=== PATIENT | female | born 2000 | race Caucasian/White ===

== ENCOUNTER 2020-09-15 11:09 | Outpatient (CLI) | payer OTHER, SELFPAY ==
[2020-09-15 12:54] LABS: HIV 1/2 Ab P24 Ag Result Negative (Negative)
[2020-09-15 13:43] LABS: Hepatitis C Virus Antibody Negative (Negative)
== END 2020-09-15 11:10 | disposition home or self-care (01) ==
DX: Z91.89 Other specified personal risk factors, not elsewhere classified (principal)
CPT/HCPCS: 36415; 86703; 86803; G0432

== ENCOUNTER 2021-06-16 12:18 | Emergency (ER) | payer OTHER, SELFPAY ==
[2021-06-16 12:21] VITALS: BP 113/72; PULSE 98; RESP 14; TEMP 36.3; O2SAT 100
[2021-06-16 12:29] VITALS: BP 119/80; PULSE 81; RESP 18; O2SAT 98
--- NOTE | 2021-06-16 12:32 | ED.NAVMDI ---
HPI - Nausea/Vomiting/Diarrhea General Chief complaint: Nausea/Vomiting/Diarrhea Stated complaint: vomiting, diarrhea Time Seen by Provider: 06/16/21 12:24 Source: patient History of Present Illness HPI Narrative: Patient is with nausea vomiting diarrhea and chills. Patient reports she has had symptoms for approximately 2 to 3 days and feel like it is getting worse. Also reports diffuse abdominal cramping that is constant with no radiation and no clear aggravating or alleviating factors. She denies any blood bile or melena. She has a sick contact denies any recent antibiotics or travel outside the area. Related Data Home Medications Medication Instructions Recorded Confirmed bupropion HCl [Wellbutrin] 75 mg PO TID 06/16/21 06/16/21 Allergies Allergy/AdvReac Type Severity Reaction Status Date / Time No Known Allergies Allergy Verified 06/16/21 12:29 Review of Systems Review of Systems: CONSTITUTIONAL: Patient reports chills EYES: Denies visual changes, redness, or discharge. ENT: Denies rhinorrhea, congestion, sore throat, or otalgia. CARDIOVASCULAR: Denies chest pain, palpitations, or edema. RESPIRATORY: Denies cough or dyspnea. GASTROINTESTINAL: Abdominal pain nausea vomiting and diarrhea GENITOURINARY: Denies dysuria or hematuria. SKIN: Denies rash or itching. MUSCULOSKELETAL: Denies back pain, joint pain, or myalgia. NEUROLOGIC: Denies headache, numbness, dizziness, or weakness. PSYCHIATRIC: Denies anxiety or depression. All systems reviewed & are unremarkable except as noted in HPI and below PMFSH Past Medical History Medical History (Updated 06/16/21 @ 14:30 by Freddy Mcguire MD) Depression Social History Social History (Updated 06/16/21 @ 12:35 by Freddy Mcguire MD) Smoking status: Current every day smoker Alcohol intake: current Substance use: current Substance use type: marijuana Exam Narrative: GENERAL: Well-appearing, well-nourished, and in no acute distress. HEAD: Normocephalic, atraumatic. EYES: PERRLA and EOMI. ENT: Nares clear, no rhinorrhea or epistaxis. Mucous membranes moist. NECK: Supple. No masses. No JVD CHEST: Clear to auscultation. No respiratory distress. No wheezes rales or rhonchi HEART: Regular rate and rhythm. No murmur heard. Normal peripheral pulses. ABDOMEN: Mild diffuse abdominal pain no rebound or guarding soft,nondistended, normal active bowel sounds. : c t tech present and toxics program officer throughout the entire exam. There are no external lesions ulcerations or pustules no focal tenderness or lymphadenopathy. Speculum exam with mild amount of dark blood in the vaginal vault with scant amount of bloody drainage from the cervix no white discharge. No purulent discharge EXTREMITIES: Normal range of motion. No edema. SKIN: Warm, dry, no rash. NEURO: No focal deficits. Alert and oriented x3. PSYCH: Normal mood and affect. Course Reevaluation(s) Reevaluation #1: Patient requested STD testing supports multiple random sexual partners of unprotected sex denies any vaginal irritation does report some mild vaginal bleeding is not sure where she is on her menses. Pelvic exam performed swab sent at patient's request Reevaluation #2: Patient is resting comfortably reports feeling improved results and plan with patient. Patient is comfortable outpatient plan. Date: 06/16/21 Time: 14:28 Vital Signs Vital signs: Vital Signs Temperature 36.3 C L 06/16/21 12:21 Pulse Rate 98 06/16/21 12:21 Respiratory Rate 14 06/16/21 12:21 Blood Pressure 113/72 06/16/21 12:21 Pulse Oximetry 100 06/16/21 12:21 Temperature 36.3 C L 06/16/21 12:21 Pulse Rate 78 06/16/21 14:37 Respiratory Rate 18 06/16/21 14:37 Blood Pressure 102/78 06/16/21 14:37 Pulse Oximetry 98 06/16/21 14:37 MDM - Nausea/Vomiting/Diarrhea MDM Narrative Medical decision making narrative: H&P as above, vss, pt looks clinically well, exam with nonacute abdomen, labs clinically
[2021-06-16 12:42] LABS: Basophils Percent Auto 0.2 % (0.2-1.2); Eosinophils Percent Auto 0.4 % (0-4.4); Hematocrit 39.9 % (37.0-47.0); Immature Granulocyte Absolute 0.02 K/mm3 (0.00-0.031); Immature Granulocyte Percent A 0.4 % (0-0.5); Lymphocytes Absolute Auto 0.95 K/mm3 (0.9-3.2); Lymphocytes Percent Auto 18.2 % (18.3-44.2); Mean Corpuscular HGB Conc 35.1 g/dl (32-36); Mean Corpuscular Hemoglobin 30.4 pg (26-34); Mean Corpuscular Volume 86.6 fl (80-100); Mean Platelet Volume 11.6 fl (7.4-10.4); Monocytes Absolute Auto 0.4 K/mm3 (0.1-0.6); Monocytes Percent Auto 8.1 % (2.6-8.5); Neutrophils Absolute Auto 3.8 K/mm3 (1.3-6.7); Neutrophils Percent Auto 72.7 % (45.5-73.1); Platelet Count Result 162 k/mm3 (150-375); Red Blood Count 4.61 M/mm3 (4.2-5.4); Red Cell Distribution Width 11.9 % (11.5-14.5); White Blood Count 5.2 K/mm3 (4.5-10.0)
[2021-06-16 12:44] LABS: Appearance Urine Clear (Clear); Bilirubin Urine 1+ (Negative); Blood Urine 2+ (Negative); Color Urine Yellow (Yellow); Glucose Urine UA Negative (Negative); Ketones Urine 4+ mg/dL (Negative); Leukocyte Esterase Ur Negative LEU/UL (Negative); Nitrate Urine Negative (Negative); Protein Urine Negative (Negative); Specific Grav Ur 1.025 (1.001-1.035); Urobilinogen Urine 0.2 mg/dL (<2.0)
[2021-06-16 12:53] LABS: Mucus Urine Few /lpf; Squamous Epithelial Cell Urine Few /hpf (Few); WBC Urine 0-3 /hpf
[2021-06-16 12:57] LABS: Alanine Aminotransferase 57 U/L (4-35); Albumin Level 4.9 g/dL (3.5-5.1); Alkaline Phosphatase 95 U/L (38-126); Anion Gap 10 mmol/L (8-16); Aspartate Amino Transferase 38 U/L (14-36); Bilirubin,Total 2.2 mg/dL (0.2-1.3); Blood Urea Nitrogen 12 mg/dL (7-17); Calcium 8.9 mg/dL (8.4-10.2); Carbon Dioxide 20 mmol/L (22-30); Chloride 104 mmol/L (98-107); Estimated CRCL calculation 137 ml/min; Estimated Glomerular Filt Rate > 60; Glucose 80 mg/dL (65-110); Lipase 26 U/L (23-300); Potassium 3.9 mmol/L (3.4-5.0); Sodium 134 mmol/L (137-145)
[2021-06-16] MEDS: SODIUM CHLORIDE 0.9% IV 1,000 ML 999 ML IV CONT (12:59)
[2021-06-16] MEDS: ONDANSETRON INJ 4 MG/2 ML VIAL IV PUSH (12:59)
[2021-06-16 13:01] LABS: Add Urine Microscopic? YES
[2021-06-16 14:37] VITALS: BP 102/78; PULSE 78; RESP 18; O2SAT 98
== END 2021-06-16 14:37 | disposition home or self-care (01) ==
PROVIDERS: Emergency Provider Emergency Medicine
DX: R11.2 Nausea with vomiting, unspecified (principal); R10.84 Generalized abdominal pain; R19.7 Diarrhea, unspecified; F32.A Depression, unspecified; Z72.51 High risk heterosexual behavior
CPT/HCPCS: 36415; 80053; 81001; 81025; 83690; 85025; 87070; 87077; 87491; 87591; 87808; 96361; 96374; 99284; J2405; J7030

== ENCOUNTER 2021-07-25 19:18 | Emergency (ER) | payer OTHER, SELFPAY ==
[2021-07-25 19:26] VITALS: BP 113/77; PULSE 88; RESP 16; TEMP 35.7; O2SAT 100
--- NOTE | 2021-07-25 19:35 | ED.NAVMDI ---
HPI - Nausea/Vomiting/Diarrhea General Chief complaint: Nausea/Vomiting/Diarrhea Stated complaint: vomiting/diarrhea Time Seen by Provider: 07/25/21 19:35 Source: patient Mode of arrival: ambulatory Limitations: no limitations History of Present Illness HPI Narrative: 21-year-old female presents with complaint of nausea vomiting diarrhea last night. Had to call into work this morning. Needs work note to return. Reports symptoms have resolved. All systems reviewed and negative except as noted above. Related Data Home Medications Medication Instructions Recorded Confirmed No Home Medications 07/25/21 07/25/21 Allergies Allergy/AdvReac Type Severity Reaction Status Date / Time No Known Allergies Allergy Verified 06/16/21 12:29 Review of Systems Review of Systems: CONSTITUTIONAL: Denies fever, chills, or sweats. EYES: Denies visual changes, redness, or discharge. ENT: Denies rhinorrhea, congestion, sore throat, or otalgia. CARDIOVASCULAR: Denies chest pain, palpitations, or edema. RESPIRATORY: Denies cough or dyspnea. GASTROINTESTINAL: Denies abdominal pain. Reports nausea, vomiting and diarrhea. GENITOURINARY: Denies dysuria or hematuria. SKIN: Denies rash or itching. MUSCULOSKELETAL: Denies back pain, joint pain, or myalgia. NEUROLOGIC: Denies headache, numbness, or weakness. PSYCHIATRIC: Denies anxiety or depression. All other systems reviewed are negative, except as documented in HPI. PMFSH Past Medical History Medical History (Updated 07/25/21 @ 19:40 by Fifi Strong NP) Depression Social History Social History (Updated 06/16/21 @ 12:35 by Freddy Mcguire MD) Smoking status: Current every day smoker Alcohol intake: current Substance use: current Substance use type: marijuana Comments At time of signature, agree with nursing past medical, surgical, social and family history. There is no relevant family history pertinent to the presenting complaint. Exam Narrative: GENERAL: This is a well-nourished, well-developed patient, in no apparent distress. HEAD: normocephalic, atraumatic. EYES: PERRL. Sclera clear/white. Vision is grossly intact. EARS: External ears normal NOSE: External nose normal NECK: Neck supple, non-tender without lymphadenopathy, masses or thyromegaly. CARDIOVASCULAR: Regular rate and rhythm without murmurs, gallops, or rubs. RESPIRATORY: Clear to auscultation. Breath sounds equal bilaterally. No wheezes, rales, or rhonchi. GASTROINTESTINAL: Abdomen soft, non-tender, nondistended. Bowel sounds are active. No hepato-splenomegaly, or palpable masses. No guarding. SKIN: warm, Dry, intact with no suspicious lesions or rash, good texture and turgor. NEURO: awake, alert, and oriented to person, place and time. There were no obvious focal neurologic abnormalities. EXTREMITIES: Normal range of motion to all extremities. Course Course Level of Care: Express Care Visit Vital Signs Vital signs: Vital Signs Temperature 35.7 C L 07/25/21 19: Pulse Rate 88 07/25/21 19:26 Respiratory Rate 16 07/25/21 19:26 Blood Pressure 113/77 07/25/21 19:26 Pulse Oximetry 100 07/25/21 19:26 Oxygen Delivery Room Air 07/25/21 19:26 Temperature 35.7 C L 07/25/21 19:26 Pulse Rate 88 07/25/21 19:26 Respiratory Rate 16 07/25/21 19:26 Blood Pressure 113/77 07/25/21 19:26 Pulse Oximetry 100 07/25/21 19:26 Oxygen Delivery Room Air 07/25/21 19:26 Reviewed MDM - Nausea/Vomiting/Diarrhea MDM Narrative Medical decision making narrative: Patient is aware of diagnosis, understands and agrees to treatment plan. Anticipatory guidance given. Patient agrees to follow-up as directed and is aware of reasons to seek care at the emergency department. Portions of this record may have been created with voice recognition software Discharge Plan Discharge Clinical Impression: Nausea vomiting and diarrhea, Well adult health check Patient Disposi
== END 2021-07-25 19:47 | disposition home or self-care (01) ==
PROVIDERS: Emergency Provider Nurse Practitioner Family
DX: R11.2 Nausea with vomiting, unspecified (principal); R19.7 Diarrhea, unspecified; F17.210 Nicotine dependence, cigarettes, uncomplicated; F12.90 Cannabis use, unspecified, uncomplicated
CPT/HCPCS: 99211; G0463

== ENCOUNTER 2021-09-21 09:53 | Emergency (ER) | payer MEDICAID, SELFPAY ==
--- NOTE | ~2021-09-21 | US_ITS ---
US OB <=14 wk fetus w TV DATE: 09/21/2021 10:59 INDICATION: Pelvic cramping, gravid patient TECHNIQUE: Real-time imaging via transabdominal and transvaginal approaches COMPARISON: None FINDINGS: The uterus measures 7.6 cm height, 4 cm AP dimension, up to 4.8 cm transverse dimension. The central endometrial echo complex measures approximately 11.5 mm AP dimension. An intrauterine ges tational sac is identified. Yolk sac is detected. No pole is identified. Sac size is consistent with 5 weeks 5 days estimated gestational age. 2.2 cm right corpus luteum cyst. The ovaries are otherwise unremarkable. No pelvic free fluid collect ion. IMPRESSION: Intrauterine gestational sac; yolk sac but not pole is detected. Sac size would be consistent with 5 weeks 5 days estimated gestational age. Short-term follow-up ultrasound imaging is recommended. Reviewed, dictated and finalized at [facility]. Reviewed, dictated and finalized at [facility]. IMPRESSION: Intrauterine gestational sac; yolk sac but not pole is detect ed. Sac size would be consistent with 5 weeks 5 days estimated gestational age. Short-term follow-up ultrasound imaging is recommended.
[2021-09-21 09:57] VITALS: BP 110/65; PULSE 117; RESP 18; TEMP 36.4; O2SAT 99
[2021-09-21] MEDS: SODIUM CHLORIDE 0.9% IV 1,000 ML 999 ML IV CONT (10:13)
--- NOTE | 2021-09-21 10:17 | ED.GENADULT ---
HPI - General Adult General Chief complaint: Unspecified Stated complaint: I think I am severly dehyrdtated Time Seen by Provider: 09/21/21 10:00 Source: patient Mode of arrival: ambulatory Limitations: no limitations History of Present Illness HPI narrative: This is a 21 year old , about 6 weeks by LMP, that presents to the ER for nausea and vomiting. Reports she was at [employer] outside all day yesterday. She does not think that she kept up with hydration. She is feeling weak. Also having some abdominal cramping. Her OB is Dr. Ruiz. She has had an US, but it was too early to identify . Denies fever. Related Data Home Medications Medication Instructions Recorded Confirmed acetaminophen 500 mg tablet mg 09/21/21 09/21/21 dicloxacillin 500 mg capsule mg 09/21/21 Allergies Allergy/AdvReac Type Severity Reaction Status Date / Time No Known Allergies Allergy Verified 09/21/21 10:04 Review of Systems Review of Systems: CONSTITUTIONAL: Denies fever GASTROINTESTINAL: Reports abdominal pain, nausea, vomiting GENITOURINARY: Denies dysuria All systems reviewed & are unremarkable except as noted in HPI and below PMFSH Past Medical History Medical History (Updated 09/21/21 @ 13:03 by Dorothy Borja PA-C) Depression Encounter for Nexplanon removal 10/21/2020 Social History Social History (Updated 09/13/21 @ 13:32 by Nga Garcia MA) Smoking status: Former smoker Alcohol intake: never Substance use: former Substance use type: marijuana Gender identity (if verbalized by the patient): Female Sexual Orientation (if Verbalized by the Patient): Straight or Heterosexual Exam Narrative: GENERAL: Well-appearing, well-nourished, and in no acute distress. HEAD: Normocephalic, atraumatic. EYES: EOMI. CHEST: Clear to auscultation. No respiratory distress. No wheezes rales or rhonchi HEART: Regular rate and rhythm. No murmur heard. Normal peripheral pulses. ABDOMEN: Soft, nontender, nondistended, normal active bowel sounds. EXTREMITIES: Normal range of motion. No edema. SKIN: Warm, dry, no rash. NEURO: No focal deficits. Alert and oriented x3. PSYCH: Normal mood and affect Course Vital Signs Vital signs: Vital Signs Temperature 97.6 F 09/21/21 09:57 Pulse Rate 117 H 09/21/21 09:57 Respiratory Rate 18 09/21/21 09:57 Blood Pressure 110/65 09/21/21 09:57 Pulse Oximetry 99 09/21/21 09:57 Temperature 97.6 F 09/21/21 12:51 Pulse Rate 108 H 09/21/21 12:51 Respiratory Rate 14 09/21/21 12:51 Blood Pressure 96/59 L 09/21/21 12:51 Pulse Oximetry 99 09/21/21 12:51 Medical Decision Making MDM Narrative Medical decision making narrative: Patient presents to the emergency department for pelvic cramping, nausea and vomiting. She is afebrile and nontoxic-appearing. Her vitals are stable. CBC and metabolic panel without concerning findings. UA without evidence of infection. Quantitative beta-hCG 9593. Patient denies any vaginal bleeding. Obstetrics ultrasound shows intrauterine gestational sac, but no pole identified. Gestational sac correlates with 5 weeks and 5 days estimated gestational age. Short-term follow-up ultrasound recommended. Patient was updated on case findings. She was hydrated with IV fluids and given antiemetic with relief. Able to tolerate p.o. challenge. Reports feeling better. She is stable and felt appropriate for further outpatient evaluation. She was given warnings to return to the ER Attempted to reach patient's OB without success. Instructed to have close follow-up with her doctor Vital Signs Vital Signs: Vital Signs Temperature 97.6 F 09/21/21 09:57 Pulse Rate 117 H 09/21/21 09:57 Respiratory Rate 18 09/21/21 09:57 Blood Pressure 110/65 09/21/21 09:57 Pulse Oximetry 99 09/21/21 09:57 Temperature 97.6 F 09/21/21 12:51 Pulse Rate 108 H 09/21/21 12:51 Respiratory Rate 14 09/21/21
[2021-09-21] MEDS: diphenhydrAMINE HCl INJ 50 MG/ML VIAL 25 MG IV PUSH (10:21)
[2021-09-21] MEDS: METOCLOPRAMIDE HCL INJ 10 MG/2 ML VIAL IV PUSH (10:23)
[2021-09-21 10:28] LABS: Basophils Percent Auto 0.2 % (0.2-1.2); Hematocrit 36.8 % (37.0-47.0); Immature Granulocyte Absolute 0.02 K/mm3 (0.00-0.031); Immature Granulocyte Percent A 0.3 % (0-0.5); Immature Platelet Fraction Pct 7.8 % (0.9-11.2); Lymphocytes Absolute Auto 0.21 K/mm3 (0.9-3.2); Lymphocytes Percent Auto 3.5 % (18.3-44.2); Mean Corpuscular HGB Conc 35.3 g/dl (32-36); Mean Corpuscular Hemoglobin 30.5 pg (26-34); Mean Corpuscular Volume 86.4 fl (80-100); Mean Platelet Volume 12.2 fl (7.4-10.4); Monocytes Absolute Auto 0.3 K/mm3 (0.1-0.6); Monocytes Percent Auto 4.9 % (2.6-8.5); Neutrophils Absolute Auto 5.4 K/mm3 (1.3-6.7); Neutrophils Percent Auto 91.1 % (45.5-73.1); Platelet Count Result 154 k/mm3 (150-375); Red Blood Count 4.26 M/mm3 (4.2-5.4); Red Cell Distribution Width 12.4 % (11.5-14.5)
[2021-09-21 10:36] LABS: Appearance Urine Clear (Clear); Bilirubin Urine Negative (Negative); Blood Urine Negative (Negative); Color Urine Yellow (Yellow); Glucose Urine UA Negative (Negative); Ketones Urine Negative (Negative); Leukocyte Esterase Ur Negative LEU/UL (Negative); Nitrate Urine Negative (Negative); Protein Urine Negative (Negative); Urobilinogen Urine 0.2 mg/dL (<2.0)
[2021-09-21 10:48] LABS: Bacteria Urine Trace /hpf; Mucus Urine Rare /lpf; RBC Urine 0-2 /hpf (0-2); Squamous Epithelial Cell Urine Occasional /hpf (Few)
[2021-09-21 10:52] LABS: Add Urine Microscopic? NO
[2021-09-21 11:14] VITALS: BP 109/69; PULSE 99; RESP 16; O2SAT 97
[2021-09-21 11:25] LABS: Alanine Aminotransferase 71 U/L (6-35); Albumin Level 4.3 g/dL (3.5-5.1); Alkaline Phosphatase 77 U/L (38-126); Anion Gap 5 mmol/L (8-16); Aspartate Amino Transferase 39 U/L (14-36); Bilirubin,Total 0.6 mg/dL (0.2-1.3); Blood Urea Nitrogen 6 mg/dL (7-17); Carbon Dioxide 24 mmol/L (22-30); Chloride 107 mmol/L (98-107); Creatine Kinase 37 U/L (30-135); Estimated CRCL calculation 137 ml/min; Estimated Glomerular Filt Rate > 60; Glucose 96 mg/dL (65-110); Potassium 3.5 mmol/L (3.4-5.0); Sodium 136 mmol/L (137-145)
[2021-09-21 12:51] VITALS: BP 96/59; PULSE 108; RESP 14; TEMP 36.4; O2SAT 99
== END 2021-09-21 13:26 | disposition home or self-care (01) ==
PROVIDERS: Physician Assistant; Emergency Provider General Practice
DX: O21.9 Vomiting of pregnancy, unspecified (principal); Z87.891 Personal history of nicotine dependence; Z3A.01 Less than 8 weeks gestation of pregnancy
CPT/HCPCS: 36415; 76801; 76817; 80053; 81003; 82550; 84702; 85025; 85055; 96361; 96374; 96375; 99284; J1200; J2765; J7030

== ENCOUNTER 2021-09-28 08:44 | Emergency (ER) | payer MEDICAID, SELFPAY ==
--- NOTE | ~2021-09-28 | US_ITS ---
US OB <= 14 weeks fetus DATE: 09/28/2021 11:45 INDICATION: Lower abdominal pain, nausea and vomiting.] Positive. TECHNIQUE: Real-time imaging and Doppler analysis COMPARISON: 09/21/2021 obstetrical ultrasound FINDINGS: The uterus measures approximately 9 cm height, 3.7 cm anteroposterior dimension. Intrauterine gestational sac is identified with normal surrounding hyperechogenicity consistent with normal decidual reaction. Yolk sac and pole are detected. heart rate of 104 bpm. [place]-rump length measures 0.38 cm average, consistent with 6 weeks +/- 4 days estimated gestational age and INO of 05/24 Slight subchorionic hematoma is suggested /2022. Subchorionic small hematoma is suggested. 1.4 x 1.7 cm left ovarian cyst. IMPRESSION: Estimated gestational age of 6 weeks +/- 4 days with INO of 05/24/2022 Small subchorionic hematoma is suggested Left ovarian cyst is diminished 2.2 to 1.7 cm maximal dimension since 09/21/2021 Reviewed, dictated and finalized at [facility]. Reviewed, dictated and finalized at [facility]. IMPRESSION: Estimated gestational age of 6 weeks +/- 4 days with INO of 05/25/19 23 Small subchorionic hematoma is suggested Left ovarian cyst is diminished 2.2 to 1.7 cm maximal dimension since 09/21/2021
--- NOTE | ~2021-09-28 | US_ITS ---
EXAMINATION: US abdomen limited DATE: 09/28/2021 11:44 INDICATION: Transaminitis, nausea and vomiting TECHNIQUE: Multiple grayscale and Doppler ultrasound images of the abdomen were obtained. COMPARISON: None available FINDINGS: Bowel gas obscures visualization of the pancreas The liver is normal with normal echogenici ty and echotexture. No surface nodularity. Normal hepatopetal flow in the main portal vein. There is a small amount of sludge in the gallbladder. There is no gallbladder wall thickening or pericholecyst ic fluid. The normal common bile duct measures 3 mm. There was no sonographic [place] sign. IMPRESSION: 1. Gallbladder sludge without additional findings of cholecystitis. Reviewed, dictated and finalized at [facility].
[2021-09-28 08:46] VITALS: BP 110/73; PULSE 92; RESP 18; TEMP 36.2; O2SAT 99
[2021-09-28 09:16] LABS: Basophils Percent Auto 0.2 % (0.2-1.2); Hematocrit 40.8 % (37.0-47.0); Hemoglobin 14.3 g/dL (12.0-15.0); Immature Platelet Fraction Pct 9.3 % (0.9-11.2); Lymphocytes Absolute Auto 1.11 K/mm3 (0.9-3.2); Lymphocytes Percent Auto 26.5 % (18.3-44.2); Mean Corpuscular Volume 85.5 fl (80-100); Mean Platelet Volume 11.4 fl (7.4-10.4); Monocytes Absolute Auto 0.4 K/mm3 (0.1-0.6); Monocytes Percent Auto 8.6 % (2.6-8.5); Neutrophils Absolute Auto 2.7 K/mm3 (1.3-6.7); Neutrophils Percent Auto 64.7 % (45.5-73.1); Platelet Count Result 141 k/mm3 (150-375); Red Blood Count 4.77 M/mm3 (4.2-5.4); Red Cell Distribution Width 12.2 % (11.5-14.5); White Blood Count 4.2 K/mm3 (4.5-10.0)
--- NOTE | 2021-09-28 09:18 | ED.GENADULT ---
HPI - General Adult General Chief complaint: Nausea/Vomiting/Diarrhea Stated complaint: nausea and vomiting - Covid positive on 09/24 Time Seen by Provider: 09/28/21 08:49 Source: patient Mode of arrival: ambulatory Limitations: no limitations History of Present Illness HPI narrative: Patient is a 21-year-old female who presents the ED with report of nausea and vomiting. Patient was diagnosed with COVID-19 via home test on 09/24 after she was exposed to someone who also tested positive. She is currently approximately 7 weeks . She was seen in the ED on 09/21 and had an US performed which showed an intrauterine sac with yolk sac, but no pole yet. , ASSISTANT PROFESSOR OF ENGLISH is Dr. Ruiz. She is scheduled to have another ultrasound on Friday. Patient reports having persistent nausea and vomiting for the last 2 days, unable to keep any fluids down. She was prescribed Reglan on 09/21 when she was seen in the ED, but was unaware of this. She has not tried this for nausea. She was prescribed Zofran by her OB yesterday and tried this today without relief. Patient also reports having a cough, subjective fever, myalgias, diffuse ABD pain, but denies vaginal bleeding, hematemesis, diarrhea, constipation, rectal bleeding, urinary symptoms. Related Data Home Medications Medication Instructions Recorded Confirmed acetaminophen 500 mg tablet mg 09/21/21 09/21/21 dicloxacillin 500 mg capsule mg 09/21/21 Allergies Allergy/AdvReac Type Severity Reaction Status Date / Time No Known Allergies Allergy Verified 09/28/21 08:45 Review of Systems Review of Systems: CONSTITUTIONAL: Reports subjective fever. CARDIOVASCULAR: Denies chest pain. RESPIRATORY: Reports cough. Denies dyspnea. GASTROINTESTINAL: Reports N/V, diffuse ABD pain. Denies hematemesis, rectal bleeding, constipation or diarrhea. GENITOURINARY: Denies vaginal bleeding, dysuria or hematuria. MUSCULOSKELETAL: Reports myalgias. All systems reviewed & are unremarkable except as noted in HPI and below PMFSH Past Medical History Medical History (Updated 09/28/21 @ 12:25 by Carol Rios PA-C) Depression Encounter for Nexplanon removal 10/21/2020 Surgical History Surgical History (Updated 09/28/21 @ 09:19 by Carol Rios PA-C) No pertinent past surgical history Social History Social History Smoking status: Former smoker Alcohol intake: never Substance use: former Substance use type: marijuana Gender identity (if verbalized by the patient): Female Sexual Orientation (if Verbalized by the Patient): Straight or Heterosexual Exam Narrative: GENERAL: Mildly ill appearing, well-nourished, non-toxic, in no acute distress. HEAD: Normocephalic, atraumatic. NECK: Supple. No adenopathy, no masses. RESPIRATORY: Airway patent, respirations nonlabored. Clear to auscultation bilaterally, no rales, rhonchi, wheezing. No respiratory distress. No coughing on evaluation. CARDIOVASCULAR: Regular rate and rhythm without murmurs, rubs, or gallops. Peripheral pulses 2+ and equal bilaterally. ABDOMINAL: Soft, diffuse nonspecific tenderness to palpation in upper and lower abdomen - no localized tenderness, nondistended, no hepatosplenomegaly. Normoactive BS. MUSCULOSKELETAL: Moves all extremities. Strength/ROM intact without gross deformities. SKIN: Warm, dry, normal color. No rashes. No diaphoresis. NEURO: A&O X3. Speech clear. Cranial nerves II-XII grossly intact. Steady gait. No ataxic movements. PSYCHIATRIC: Appropriate mood and affect. Normal interaction. Course Consultations Consultation #1: Discussed case with Dr. Ruiz, patient's ASSISTANT PROFESSOR OF ENGLISH, recommended [facility] [employer] for cough at home. Will follow as outpatient. Date: 09/28/21 Vital Signs Vital signs: Vital Signs Temperature 97.1 F L 09/28/21 08:46 Pulse Rate 92 09/28/21 08:46 Respiratory Rate 18 09/28/21 08:46 Blood Pressure 110/73 09/28/21 08:46
[2021-09-28 09:26] LABS: Alanine Aminotransferase 309 U/L (6-35); Albumin Level 4.9 g/dL (3.5-5.1); Alkaline Phosphatase 109 U/L (38-126); Anion Gap 10 mmol/L (8-16); Aspartate Amino Transferase 217 U/L (14-36); Bilirubin,Total 1.2 mg/dL (0.2-1.3); Blood Urea Nitrogen 10 mg/dL (7-17); Calcium 9.1 mg/dL (8.4-10.2); Carbon Dioxide 26 mmol/L (22-30); Chloride 101 mmol/L (98-107); Estimated CRCL calculation 134 ml/min; Estimated Glomerular Filt Rate > 60; Glucose 108 mg/dL (65-110); Lipase 30 U/L (23-300); Potassium 3.6 mmol/L (3.4-5.0); Sodium 137 mmol/L (137-145)
[2021-09-28] MEDS: SODIUM CHLORIDE 0.9% IV 1,000 ML 999 ML IV CONT ×2 (10:05→11:38)
[2021-09-28] MEDS: ONDANSETRON INJ 4 MG/2 ML VIAL IV PUSH (10:05)
[2021-09-28 10:15] LABS: Appearance Urine Slightly Cloudy (Clear); Bilirubin Urine 2+ (Negative); Blood Urine Negative (Negative); Glucose Urine UA Negative (Negative); Ketones Urine 1+ mg/dL (Negative); Leukocyte Esterase Ur Negative LEU/UL (Negative); Nitrate Urine Negative (Negative); Protein Urine 1+ mg/dL (Negative); Specific Grav Ur 1.015 (1.001-1.035); pH Urine 8.5 (5.0-9.0)
[2021-09-28 10:25] LABS: Mucus Urine Moderate /lpf; Squamous Epithelial Cell Urine Many /hpf (Few)
[2021-09-28 10:48] LABS: Add Urine Microscopic? YES; Color Urine Dark Yellow (Yellow)
[2021-09-28] MEDS: METOCLOPRAMIDE HCL INJ 10 MG/2 ML VIAL IV PUSH (12:46)
[2021-09-28 14:21] VITALS: BP 100/79; PULSE 83; RESP 16; O2SAT 100
== END 2021-09-28 14:22 | disposition home or self-care (01) ==
PROVIDERS: Physician Assistant; Emergency Provider Emergency Medicine; PCP Obstetrics & Gynecology
DX: O98.511 Other viral diseases complicating pregnancy, first trimester (principal); U07.1 COVID-19; O21.9 Vomiting of pregnancy, unspecified; O26.891 Other specified pregnancy related conditions, first trimester; R82.71 Bacteriuria; R74.01 Elevation of levels of liver transaminase levels; R93.2 Abnormal findings on diagnostic imaging of liver and biliary tract; O34.81 Maternal care for other abnormalities of pelvic organs, first trimester; N83.202 Unspecified ovarian cyst, left side; Z3A.01 Less than 8 weeks gestation of pregnancy; Z87.891 Personal history of nicotine dependence
CPT/HCPCS: 36415; 76705; 76801; 80053; 81001; 83690; 84702; 85025; 85055; 87086; 87088; 96361; 96374; 96375; 99284; J0131; J2405; J2765; J7030

== ENCOUNTER 2021-10-17 12:16 | Outpatient (CLI) | payer OTHER, SELFPAY ==
[2021-10-17 12:49] LABS: Basophils Percent Auto 0.3 % (0.2-1.2); Eosinophils Percent Auto 0.3 % (0-4.4); Hematocrit 37.9 % (37.0-47.0); Hemoglobin 13.2 g/dL (12.0-15.0); Immature Granulocyte Absolute 0.02 K/mm3 (0.00-0.031); Immature Granulocyte Percent A 0.3 % (0-0.5); Lymphocytes Absolute Auto 1.12 K/mm3 (0.9-3.2); Lymphocytes Percent Auto 15.8 % (18.3-44.2); Mean Corpuscular HGB Conc 34.8 g/dl (32-36); Mean Platelet Volume 11.7 fl (7.4-10.4); Monocytes Absolute Auto 0.5 K/mm3 (0.1-0.6); Monocytes Percent Auto 7.2 % (2.6-8.5); Neutrophils Absolute Auto 5.4 K/mm3 (1.3-6.7); Neutrophils Percent Auto 76.1 % (45.5-73.1); Platelet Count Result 201 k/mm3 (150-375); Red Blood Count 4.26 M/mm3 (4.2-5.4); Red Cell Distribution Width 12.9 % (11.5-14.5); White Blood Count 7.1 K/mm3 (4.5-10.0)
[2021-10-17 13:36] LABS: HIV 1/2 Ab P24 Ag Result Negative (Negative)
[2021-10-17 13:48] LABS: Hepatitis B Surface Antigen Negative (Negative); Rubella IgG Antibody 8.5 IU/ML
[2021-10-18 07:37] LABS: Rapid Plasma Reagin Non-Reactive (NonReactive)
[2021-10-29 13:07] LABS: CF Result NEGATIVE (NEGATIVE); Ethnicity NG
[2021-10-31 19:46] LABS: SMA 2.0 RISK VARIANT NOT DETECTED
[2021-11-02 14:24] LABS: SMA Results Received Yes
== END 2021-10-17 12:17 | disposition home or self-care (01) ==
LOC: ANHLAB 12:19
PROVIDERS: PCP Family Medicine; Visit Provider Obstetrics & Gynecology
DX: N94.89 Other specified conditions associated with female genital organs and menstrual cycle (principal)
CPT/HCPCS: 36415; 81220; 81329; 84702; 85025; 86592; 86644; 86703; 86747; 86762; 86787; 86900; 86901; 87086; 87088; 87340; G0432

== ENCOUNTER 2021-12-21 09:13 | Emergency (ER) | payer OTHER, SELFPAY ==
[2021-12-21] VITALS (16 sets, daily range): BP systolic 105–125; BP diastolic 61–95; PULSE 81–94; RESP 12–24; TEMP 37.2; O2SAT 98–100
--- NOTE | 2021-12-21 09:34 | ED.DIZZY ---
HPI - Dizziness General Chief Complaint: Dizziness Stated Complaint: 18 weeks , dizziness, abdominal pain Time Seen by Provider: 12/21/21 09:25 History of Present Illness HPI Narrative: 21-year-old female who is 18 weeks presents to the emergency room for multiple complaints. Patient states last night she began experiencing dizziness, stating that it was worse with positional changes. Reports this morning she began developing lower abdominal pain, describing it as a cramping sensation. Patient denies any dysuria constipation or diarrhea. Patient denies fevers. Patient states that she is been unable to experience baby moving. States that this has been a common finding through her OB visits. Related Data Home Medications Medication Instructions Recorded Confirmed vitamins-iron fumarate 65 1 tablet PO DAILY 10/17/21 12/11/21 mg iron-folic acid 1 mg tablet Allergies Allergy/AdvReac Type Severity Reaction Status Date / Time No Known Allergies Allergy Verified 12/11/21 17:22 Review of Systems Review of Systems: CONSTITUTIONAL: Denies fever, chills, or sweats. EYES: Denies visual changes, redness, or discharge. ENT: Denies rhinorrhea, congestion, sore throat, or otalgia. CARDIOVASCULAR: Denies chest pain, palpitations, or edema. RESPIRATORY: Denies cough or dyspnea. GASTROINTESTINAL: Reports abdominal pain GENITOURINARY: Denies dysuria or hematuria. SKIN: Denies rash or itching. MUSCULOSKELETAL: Denies back pain, joint pain, or myalgia. NEUROLOGIC: Reports dizziness PSYCHIATRIC: Denies anxiety or depression. PMFSH Past Medical History Medical History Bipolar disorder Depression Encounter for Nexplanon removal 10/21/2020 Encounter for screening examination for sexually transmitted disease Surgical History Surgical History No pertinent past surgical history Social History Social History Smoking status: Former smoker Alcohol intake: never Substance use: former Substance use type: marijuana Gender identity (if verbalized by the patient): Female Sexual Orientation (if Verbalized by the Patient): Straight or Heterosexual Exam Narrative: GENERAL: Well-appearing, well-nourished, no physical limitations, and in no acute distress. HEAD: Normocephalic, atraumatic. EYES: Conjunctivae normal, PERRLA and EOMI. CHEST: Clear to auscultation. No respiratory distress. No wheezes rales or rhonchi. HEART: Regular rate and rhythm. No murmur heard. Normal peripheral pulses. ABDOMEN: Soft, lower abdominal tenderness, nondistended, normal active bowel sounds.m. BACK: No CVA tenderness EXTREMITIES: Normal range of motion. No edema. No clubbing or cyanosis SKIN: Warm, dry, no rash. No noted wounds NEURO: No focal deficits. Alert and oriented x3. MAEW. CN's II-XI intact bilaterally, normal gait PSYCH: Cooperative. Normal mood and affect. Course Vital Signs Vital signs: Vital Signs Pulse Rate 85 12/21/21 09:28 Respiratory Rate 16 12/21/21 09:28 Temperature 37.2 C 12/21/21 09:29 Pulse Rate 82 12/21/21 11:47 Respiratory Rate 18 12/21/21 11:47 Blood Pressure 122/61 12/21/21 11:47 Pulse Oximetry 100 12/21/21 11:47 MDM - Dizziness MDM Narrative Medical decision making narrative: 21-year-old female presented emergency room with lower abdominal pain since last night and intermittent dizziness. Labs are reassuring. No signs of infection and urinary tract infection or liver enzymes. Patient likely experiencing round ligament discomfort. Discussed case with Dr. Savage, that he is agreement. Encourages patient to remain hydrated through the weekend and will have her follow-up with him in the beginning of next week. Lab Data Result diagrams: 12/21/21 10:10 12/21/21 10:23
[2021-12-21 09:52] LABS: Add Urine Microscopic? YES; Appearance Urine Cloudy (Clear); Bilirubin Urine Negative (Negative); Blood Urine Negative (Negative); Color Urine Yellow (Yellow); Glucose Urine UA Negative (Negative); Ketones Urine Negative (Negative); Leukocyte Esterase Ur Negative LEU/UL (Negative); Mucus Urine Rare /lpf; Nitrate Urine Negative (Negative); Protein Urine Negative (Negative); RBC Urine 0-2 /hpf (0-2); Specific Grav Ur 1.014 (1.001-1.035); Squamous Epithelial Cell Urine Rare /hpf (Few); Urobilinogen Urine Negative mg/dL (<2.0); WBC Urine 0-3 /hpf
[2021-12-21] MEDS: SODIUM CHLORIDE 0.9% IV 1,000 ML 999 ML IV CONT (10:14)
[2021-12-21 10:27] LABS: Basophils Percent Auto 0.1 % (0.2-1.2); Eosinophils Percent Auto 0.4 % (0-4.4); Hematocrit 35.4 % (37.0-47.0); Hemoglobin 12.7 g/dL (12.0-15.0); Immature Granulocyte Absolute 0.02 K/mm3 (0.00-0.031); Immature Granulocyte Percent A 0.3 % (0-0.5); Lymphocytes Absolute Auto 1.18 K/mm3 (0.9-3.2); Lymphocytes Percent Auto 16.7 % (18.3-44.2); Mean Corpuscular HGB Conc 35.9 g/dl (32-36); Mean Corpuscular Hemoglobin 31.1 pg (26-34); Mean Corpuscular Volume 86.8 fl (80-100); Mean Platelet Volume 11.5 fl (7.4-10.4); Monocytes Absolute Auto 0.4 K/mm3 (0.1-0.6); Monocytes Percent Auto 6.2 % (2.6-8.5); Neutrophils Absolute Auto 5.4 K/mm3 (1.3-6.7); Neutrophils Percent Auto 76.3 % (45.5-73.1); Platelet Count Result 169 k/mm3 (150-375); Red Blood Count 4.08 M/mm3 (4.2-5.4); Red Cell Distribution Width 12.3 % (11.5-14.5); White Blood Count 7.1 K/mm3 (4.5-10.0)
[2021-12-21 10:40] LABS: Alanine Aminotransferase 28 U/L (6-35); Albumin Level 3.9 g/dL (3.5-5.1); Alkaline Phosphatase 81 U/L (38-126); Anion Gap 11 mmol/L (8-16); Aspartate Amino Transferase 26 U/L (14-36); Bilirubin,Total 0.5 mg/dL (0.2-1.3); Blood Urea Nitrogen 6 mg/dL (7-17); Calcium 8.6 mg/dL (8.4-10.2); Carbon Dioxide 22 mmol/L (22-30); Chloride 102 mmol/L (98-107); Estimated CRCL calculation 168 ml/min; Estimated Glomerular Filt Rate > 60; Glucose 84 mg/dL (65-110); Lipase 27 U/L (23-300); Potassium 3.7 mmol/L (3.4-5.0); Sodium 135 mmol/L (137-145)
[2021-12-21] MEDS: MECLIZINE HCL 25 MG TABLET PO (11:37)
== END 2021-12-21 13:11 | disposition home or self-care (01) ==
PROVIDERS: Emergency Provider Nurse Practitioner Family; PCP Family Medicine
DX: O26.892 Other specified pregnancy related conditions, second trimester (principal); R42 Dizziness and giddiness; R10.2 Pelvic and perineal pain; Z3A.18 18 weeks gestation of pregnancy
CPT/HCPCS: 36415; 80053; 81001; 83690; 85025; 96360; 96361; 99283; A9270; J7030

== ENCOUNTER 2022-02-12 10:58 | Outpatient (CLI) | payer OTHER, SELFPAY | END 2022-02-12 10:59 | disposition home or self-care (01) | LOC: ANHLAB 10:59 | PROVIDERS: PCP Family Medicine; Visit Provider Student in an Organized Health Care Education/Training Program | DX: N39.0 Urinary tract infection, site not specified (principal) | CPT/HCPCS: 87086; 87088 ==

== ENCOUNTER 2022-03-05 09:05 | Outpatient (CLI) | payer OTHER, SELFPAY ==
[2022-03-05 11:17] LABS: Hematocrit 31.4 % (37.0-47.0); Hemoglobin 10.9 g/dL (12.0-15.0); Mean Corpuscular HGB Conc 34.7 g/dl (32-36); Mean Corpuscular Volume 89.2 fl (80-100); Platelet Count Result 140 k/mm3 (150-375); Red Blood Count 3.52 M/mm3 (4.2-5.4); Red Cell Distribution Width 12.9 % (11.5-14.5)
[2022-03-05 11:31] LABS: Glucose 1 Hour PP 50gm Dose 115 mg/dL
[2022-03-05 12:09] LABS: HIV 1/2 Ab P24 Ag Result Negative (Negative)
== END 2022-03-05 09:06 | disposition home or self-care (01) ==
PROVIDERS: PCP Family Medicine; Visit Provider Student in an Organized Health Care Education/Training Program
DX: Z34.90 Encounter for supervision of normal pregnancy, unspecified, unspecified trimester (principal)
CPT/HCPCS: 36415; 82947; 85027; 86703; G0432

== ENCOUNTER 2022-03-06 09:42 | Outpatient (CLI) | payer OTHER, SELFPAY ==
[2022-03-13 15:12] LABS: Chenodeoxycholic Acid 6.1 umol/L (< OR = 3.9); Cholic Acid 6.5 umol/L (< OR = 2.8); Deoxycholic Acid <0.5 umol/L (< OR = 2.3); Total Bile Acids 12.6 umol/L (< OR = 8.3)
== END 2022-03-06 09:43 | disposition home or self-care (01) ==
PROVIDERS: PCP Family Medicine; Visit Provider Obstetrics & Gynecology
DX: L29.9 Pruritus, unspecified (principal); O99.719 Diseases of the skin and subcutaneous tissue complicating pregnancy, unspecified trimester; Z3A.00 Weeks of gestation of pregnancy not specified
CPT/HCPCS: 36415; 82542

== ENCOUNTER 2022-03-22 11:35 | Outpatient (CLI) | payer OTHER, SELFPAY ==
[2022-03-22 12:53] LABS: Alanine Aminotransferase 21 U/L (6-35); Albumin Level 3.5 g/dL (3.5-5.1); Alkaline Phosphatase 113 U/L (38-126); Anion Gap 4 mmol/L (8-16); Aspartate Amino Transferase 18 U/L (14-36); Bilirubin,Total 0.5 mg/dL (0.2-1.3); Blood Urea Nitrogen 6 mg/dL (7-17); Calcium 8.4 mg/dL (8.4-10.2); Carbon Dioxide 27 mmol/L (22-30); Chloride 101 mmol/L (98-107); Estimated Glomerular Filt Rate > 60; Glucose 100 mg/dL (65-110); Potassium 3.5 mmol/L (3.4-5.0); Sodium 132 mmol/L (137-145)
[2022-03-28 19:48] LABS: Chenodeoxycholic Acid 4.5 umol/L (< OR = 3.9); Cholic Acid 2.5 umol/L (< OR = 2.8); Deoxycholic Acid <0.5 umol/L (< OR = 2.3)
== END 2022-03-22 11:36 | disposition home or self-care (01) ==
LOC: ANHLAB 11:36
PROVIDERS: PCP Family Medicine; Visit Provider Obstetrics & Gynecology
DX: O26.619 Liver and biliary tract disorders in pregnancy, unspecified trimester (principal); Z3A.00 Weeks of gestation of pregnancy not specified; K83.1 Obstruction of bile duct
CPT/HCPCS: 36415; 80053; 82542

== ENCOUNTER 2022-03-26 07:56 | Outpatient (RCR) | payer OTHER, SELFPAY ==
[2022-03-19 13:09] VITALS: BP 123/70; PULSE 97
[2022-03-22 11:26] VITALS: BP 115/71; PULSE 106
--- NOTE | ~2022-03-26 | US_ITS ---
EXAMINATION: US OB follow up w BPP DATE: 03/19/2022 13:04 INDICATION: Biophysical profile and growth assessment during third trimester TECHNIQUE: Real-time pelvic ultrasound was performed. The interpreting radiologist was not present fo r the study. COMPARISON: None. FINDINGS: There is a single living fetus in vertex presentation. The placenta is posterior and greater than 4 c m from the internal cervical os. heart rate is 167 beats per minute (bpm). Biophysical profile performed by the technologist: breathing (30 sec sustained breathing in 30 minutes): 2 out of 2 movement (3 gross body movements in 30 minutes): 2 out of 2 tone (one episode of wxpqfhy-nnybezgns-rwrfvgz limb movement): 2 out of 2 Amniotic fluid pocket (2 cm): 2 out of 2 Total score: 8 out of 8 The following biometric data were obtained: Biparietal diameter (BPD): 7.7 cm; head circumference (HC): 28.1 cm; abdominal circumference (AC): 2. 7 cm; femur length (FL): 5.6 cm. These measurements are concordant. Estimated weight is 1611 g +/- 241 g, which correlates with the 35th percentile when 05/23/2022 is used as estimated date of delivery. As single measurements, these parameters are each equal to the following estimated gestational ages w ith ranges of +/- 2 standard deviations: BPD: 30 weeks 6 days +/- 3 weeks 1 days. HC: 30 weeks 5 days +/- 3 weeks 0 days. AC: 30 weeks 4 days +/- 3 weeks 0 days. FL: 30 weeks 5 days +/- 3 weeks 0 days. estimated gestational age based solely on measurements from this exam is 30 weeks 5 days +/- 2 weeks 1 days. IMPRESSION: 1. Single living fetus in vertex presentation. 2. Biophysical profile 8 out of 8. 3. Estimated weight is 1611 g +/- 241 g, which correlates with the 35th percentile when 05/24/19 23 is used as estimated date of delivery. Reviewed, dictated and finalized at location A. ET BRAIDER IMPRESSION: 1. Single living fetus in vertex presentation. 2. Biophysical profile 8 out of 8. 3. Estimated weight is 1611 g +/- 241 g, which correlates with the 35th p ercentile when 05/23/2022 is used as estimated date of delivery.
--- NOTE | ~2022-03-26 | US_ITS ---
EXAMINATION: US OB BPP wo non-stress DATE: 03/26/2022 09:00 INDICATION: Cholestasis. Third trimester . TECHNIQUE: Real-time pelvic ultrasound was performed. The interpreting radiologist was not present fo r the study. COMPARISON: None. FINDINGS: There is a single living fetus in vertex presentation. The placenta is fundal. heart rate is 1 34 beats per minute (bpm). Biophysical profile performed by the technologist: breathing (30 sec sustained breathing in 30 minutes): 2 out of 2 movement (3 gross body movements in 30 minutes): 2 out of 2 tone (one episode of sojojmr-jvqdmctgs-dlyfkdw limb movement): 2 out of 2 Amniotic fluid pocket (2 cm): 2 out of 2 Total score: 8 out of 8 IMPRESSION: 1. Single living fetus in vertex presentation with heart rate of 134 bpm. 2. Biophysical profile 8 out of 8. Reviewed, dictated and finalized at location L. RING ATTENDANT
[2022-03-26 09:03] VITALS: BP 110/71; PULSE 96
[2022-03-29 12:30] VITALS: BP 113/71; PULSE 92
== END 2022-04-09 08:09 | disposition home or self-care (01) ==
LOC: ANHOBOP 07:56
PROVIDERS: PCP Family Medicine; Visit Provider Obstetrics & Gynecology
DX: O26.613 Liver and biliary tract disorders in pregnancy, third trimester (principal); K83.1 Obstruction of bile duct; Z3A.30 30 weeks gestation of pregnancy; Z3A.31 31 weeks gestation of pregnancy; Z3A.32 32 weeks gestation of pregnancy
CPT/HCPCS: 59025; 76816; 76819

== ENCOUNTER 2022-05-14 10:36 | Outpatient (RCR) | payer OTHER, SELFPAY ==
[2022-03-15 11:34] LABS: Alanine Aminotransferase 42 U/L (6-35); Albumin Level 3.8 g/dL (3.5-5.1); Alkaline Phosphatase 139 U/L (38-126); Anion Gap 6 mmol/L (8-16); Aspartate Amino Transferase 31 U/L (14-36); Bilirubin,Total 0.6 mg/dL (0.2-1.3); Blood Urea Nitrogen 5 mg/dL (7-17); Calcium 8.8 mg/dL (8.4-10.2); Carbon Dioxide 23 mmol/L (22-30); Chloride 101 mmol/L (98-107); Estimated Glomerular Filt Rate > 60; Glucose 149 mg/dL (65-110); Potassium 3.1 mmol/L (3.4-5.0); Sodium 130 mmol/L (137-145)
[2022-03-21 17:38] LABS: Cholic Acid 4.1 umol/L (< OR = 2.8); Deoxycholic Acid <0.5 umol/L (< OR = 2.3); Total Bile Acids 8.1 umol/L (< OR = 8.3)
[2022-03-29 11:22] VITALS: BP 113/71; PULSE 103
[2022-03-29 13:35] LABS: Alanine Aminotransferase 19 U/L (6-35); Albumin Level 3.4 g/dL (3.5-5.1); Alkaline Phosphatase 115 U/L (38-126); Anion Gap 4 mmol/L (8-16); Aspartate Amino Transferase 20 U/L (14-36); Bilirubin,Total 0.6 mg/dL (0.2-1.3); Blood Urea Nitrogen 8 mg/dL (7-17); Calcium 8.5 mg/dL (8.4-10.2); Carbon Dioxide 25 mmol/L (22-30); Chloride 105 mmol/L (98-107); Estimated Glomerular Filt Rate > 60; Glucose 117 mg/dL (65-110); Potassium 3.7 mmol/L (3.4-5.0); Sodium 134 mmol/L (137-145)
[2022-04-02 12:39] VITALS: BP 113/77
[2022-04-05 11:07] VITALS: BP 113/70; PULSE 98
[2022-04-06 18:23] LABS: Chenodeoxycholic Acid 1.8 umol/L (< OR = 3.9); Cholic Acid 1.3 umol/L (< OR = 2.8); Deoxycholic Acid <0.5 umol/L (< OR = 2.3); Total Bile Acids 3.2 umol/L (< OR = 8.3)
[2022-04-09 10:50] VITALS: BP 110/76; PULSE 101
[2022-04-12 10:37] LABS: Alanine Aminotransferase 18 U/L (6-35); Albumin Level 3.6 g/dL (3.5-5.1); Alkaline Phosphatase 116 U/L (38-126); Anion Gap 4 mmol/L (8-16); Aspartate Amino Transferase 21 U/L (14-36); Bilirubin,Total 0.8 mg/dL (0.2-1.3); Blood Urea Nitrogen 8 mg/dL (7-17); Calcium 8.8 mg/dL (8.4-10.2); Carbon Dioxide 27 mmol/L (22-30); Chloride 101 mmol/L (98-107); Estimated Glomerular Filt Rate > 60; Glucose 92 mg/dL (65-110); Potassium 3.5 mmol/L (3.4-5.0); Sodium 132 mmol/L (137-145)
[2022-04-12 10:54] VITALS: BP 109/75; PULSE 97
[2022-04-12 14:42] LABS: Chenodeoxycholic Acid 0.8 umol/L (< OR = 3.9); Cholic Acid 0.5 umol/L (< OR = 2.8); Cholic Acid <0.5 umol/L (< OR = 2.8); Deoxycholic Acid <0.5 umol/L (< OR = 2.3); Total Bile Acids <1.5 umol/L (< OR = 8.3)
[2022-04-16 12:05] VITALS: BP 111/74; PULSE 97
[2022-04-19 10:45] LABS: Alanine Aminotransferase 16 U/L (6-35); Albumin Level 3.7 g/dL (3.5-5.1); Alkaline Phosphatase 134 U/L (38-126); Anion Gap 5 mmol/L (8-16); Aspartate Amino Transferase 20 U/L (14-36); Bilirubin,Total 0.6 mg/dL (0.2-1.3); Blood Urea Nitrogen 5 mg/dL (7-17); Calcium 8.4 mg/dL (8.4-10.2); Carbon Dioxide 22 mmol/L (22-30); Chloride 103 mmol/L (98-107); Estimated Glomerular Filt Rate > 60; Glucose 88 mg/dL (65-110); Potassium 3.6 mmol/L (3.4-5.0); Sodium 130 mmol/L (137-145)
[2022-04-19 10:59] VITALS: BP 118/86; PULSE 105
[2022-04-22 20:11] LABS: Chenodeoxycholic Acid 5.5 umol/L (< OR = 3.9); Cholic Acid 3.4 umol/L (< OR = 2.8); Deoxycholic Acid <0.5 umol/L (< OR = 2.3); Total Bile Acids 8.9 umol/L (< OR = 8.3)
[2022-04-23 11:31] VITALS: BP 116/71; PULSE 92
[2022-04-26 13:02] VITALS: PULSE 100
[2022-04-26 13:31] LABS: Alanine Aminotransferase 18 U/L (6-35); Albumin Level 3.8 g/dL (3.5-5.1); Alkaline Phosphatase 138 U/L (38-126); Anion Gap 6 mmol/L (8-16); Aspartate Amino Transferase 23 U/L (14-36); Bilirubin,Total 0.9 mg/dL (0.2-1.3); Blood Urea Nitrogen 7 mg/dL (7-17); Calcium 8.4 mg/dL (8.4-10.2); Carbon Dioxide 25 mmol/L (22-30); Chloride 101 mmol/L (98-107); Estimated Glomerular Filt Rate > 60; Glucose 107 mg/dL (65-110); Potassium 3.7 mmol/L (3.4-5.0); Sodium 132 mmol/L (137-145)
[2022-04-27 18:08] LABS: Chenodeoxycholic Acid 0.7 umol/L (< OR = 3.9); Cholic Acid <0.5 umol/L (< OR = 2.8); Deoxycholic Acid <0.5 umol/L (< OR = 2.3); Total Bile Acids <1.5 umol/L (< OR = 8.3)
--- NOTE | 2022-04-30 10:14 | PC.NURSE ---
Pt comes in for NST and BPP on Tuesdays and then NST and labs on Fridays.
[2022-04-30 10:16] VITALS: BP 111/65; PULSE 94
--- NOTE | 2022-04-30 10:38 | PC.NURSE ---
BPP 10/08 per Rebecca in ultrasound. Pt scheduled for testing again this Friday. Reviewed precautions.
[2022-05-03 12:27] VITALS: BP 116/80; PULSE 97
[2022-05-03 12:28] LABS: Alanine Aminotransferase 16 U/L (6-35); Albumin Level 3.5 g/dL (3.5-5.1); Alkaline Phosphatase 147 U/L (38-126); Anion Gap 7 mmol/L (8-16); Aspartate Amino Transferase 22 U/L (14-36); Bilirubin,Total 0.8 mg/dL (0.2-1.3); Blood Urea Nitrogen 5 mg/dL (7-17); Calcium 8.6 mg/dL (8.4-10.2); Carbon Dioxide 21 mmol/L (22-30); Chloride 106 mmol/L (98-107); Estimated Glomerular Filt Rate > 60; Glucose 137 mg/dL (65-110); Potassium 3.4 mmol/L (3.4-5.0); Sodium 134 mmol/L (137-145)
[2022-05-04 16:17] LABS: Chenodeoxycholic Acid 1.2 umol/L (< OR = 3.9); Deoxycholic Acid <0.5 umol/L (< OR = 2.3); Total Bile Acids 2.2 umol/L (< OR = 8.3)
[2022-05-07 11:47] VITALS: BP 118/76; PULSE 76
[2022-05-10 11:50] VITALS: BP 115/77; PULSE 96
--- NOTE | ~2022-05-14 | US_ITS ---
US OB BPP wo non-stress DATE: 05/07/2022 11:39 INDICATION: Cholestasis TECHNIQUE: Real-time imaging and Doppler analysis COMPARISON: April 30, 2022 obstetrical ultrasound with biophysical profile FINDINGS: Single live intrauterine gestation, fetus in longitudinal lie, vertex presentation. Left frontal placenta. Subjectively normal amount of amniotic fluid. Amniotic fluid index measures 12.9 cm. (5th percentile SKYLER: 7.5 cm; 95th percentile SKYLER: 24.4 cm). Technologist estimates cervical length at 6 cm. BIOPHYSICAL PROFILE reported by histology technician: breathin out of 2 movement: 2 out of 2 tone: 2 out of 2 Amniotic fluid pocket: 2 out of 2 Total score: 8 out of 8 IMPRESSION: Normal biophysical profile score of 8 out of 8 Reviewed, dictated and finalized at Location A. Reviewed, dictated and finalized at location L. N DESIGNER
--- NOTE | ~2022-05-14 | US_ITS ---
EXAMINATION: US OB follow up w BPP DATE: 04/16/2022 11:16 INDICATION: Biophysical profile and amniotic fluid assessment during third trimester TECHNIQUE: Real-time pelvic ultrasound was performed. The interpreting radiologist was not present fo r the study. COMPARISON: 04/09/2022 FINDINGS: There is a single living fetus in vertex presentation. The placenta is fundal. heart rate is 14 1 beats per minute (bpm). The amniotic fluid index is 12.1 cm which is normal (normal range: 8.1 cm t o 24.8 cm). Biophysical profile performed by the technologist: breathing (30 sec sustained breathing in 30 minutes): 2 out of 2 movement (3 gross body movements in 30 minutes): 2 out of 2 tone (one episode of ddnslml-ctkcabqfy-ohblfmn limb movement): 2 out of 2 Amniotic fluid pocket (2 cm): 2 out of 2 Total score: 8 out of 8 The following biometric data were obtained: Biparietal diameter (BPD): 8.9 cm; head circumference (HC): 32.2 cm; abdominal circumference (AC): 29 .4 cm; femur length (FL): 6.7 cm. These measurements are concordant. Estimated weight is 2383 g +/- 357 g, which correlates with the 32nd percentile when 05/23/2022 is used as estimated date of delivery. As single measurements, these parameters are each equal to the following estimated gestational ages w ith ranges of +/- 2 standard deviations: BPD: 35 weeks 6 days +/- 3 weeks 1 days. HC: 36 weeks 3 days +/- 2 weeks 5 days. AC: 33 weeks 3 days +/- 3 weeks 0 days. FL: 34 weeks 4 days +/- 3 weeks 0 days. estimated gestational age based solely on measurements from this exam is 35 weeks 1 days +/- 2 weeks 3 days. IMPRESSION: 1. Single living fetus in vertex presentation. 2. Biophysical profile 8 out of 8. 3. Normal amniotic fluid index. 4. Estimated weight is 2383 g +/- 357 g, which correlates with the 32nd percentile when 05/24/19 23 is used as estimated date of delivery. Reviewed, dictated and finalized at location L. MAN IMPRESSION: 1. Single living fetus in vertex presentation. 2. Biophysical profile 8 out of 8. 3. Normal amniotic fluid index. 4. Estimated weight is 2383 g +/- 357 g, which correlates with the 32nd p ercentile when 05/23/2022 is used as estimated date of delivery.
--- NOTE | ~2022-05-14 | US_ITS ---
EXAMINATION: US OB BPP wo non-stress DATE: 04/23/2022 11:32 COTTON JAMMER INDICATION: Evaluate well-being. Biophysical profile. TECHNIQUE: Real-time transabdominal obstetric ultrasound. FINDINGS: 04/16/2022 There is a single living fetus in vertex presentation. The placenta is maternal left without placent a previa. cardiac activity and movement is noted with a heart rate of 163 beats per minute. Biophysical profile: breathin of 2 movement: 2 of 2 tone: 2 of 2 Amniotic flud pocket: 2 of 2 Total score: 8 of 8 IMPRESSION: 1. Single living intrauterine in vertex presentation. 2: Total biophysical profile score of 8/8. Reviewed, dictated and finalized at location L. ON JAMMER
--- NOTE | ~2022-05-14 | US_ITS ---
EXAMINATION: US OB BPP wo non-stress DATE: 04/09/2022 10:46 INDICATION: Cholestasis, third trimester TECHNIQUE: Real-time pelvic ultrasound was performed. The interpreting radiologist was not present fo r the study. COMPARISON: 04/02/2022 FINDINGS: There is a single living fetus in vertex presentation. The placenta is fundal. heart rate is 13 4 beats per minute (bpm). Biophysical profile performed by the technologist: breathing (30 sec sustained breathing in 30 minutes): 2 out of 2 movement (3 gross body movements in 30 minutes): 2 out of 2 tone (one episode of nxqsjbz-cdkrtpqpo-xlhdczt limb movement): 2 out of 2 Amniotic fluid pocket (2 cm): 2 out of 2 Total score: 8 out of 8 IMPRESSION: 1. Single living fetus in vertex presentation. 2. Biophysical profile 8 out of 8. Reviewed, dictated and finalized at location L. ROLLING MACHINE OPERATOR
--- NOTE | ~2022-05-14 | US_ITS ---
EXAMINATION: US OB BPP wo non-stress DATE: 05/14/2022 11:30 INDICATION: Cholestasis in . Third trimester. TECHNIQUE: Real-time pelvic ultrasound was performed. COMPARISON: Ultrasound 05/07/2022 FINDINGS: There is a single living fetus in vertex presentation. The placenta is fundal. heart rate is 1 42 beats per minute (bpm). Biophysical profile performed by the technologist: breathing (30 sec sustained breathing in 30 minutes): 2 out of 2 movement (3 gross body movements in 30 minutes): 2 out of 2 tone (one episode of pcvjyiz-xfoxbkgrn-dnxxudc limb movement): 2 out of 2 Amniotic fluid pocket (2 cm): 2 out of 2 Total score: 8 out of 8 IMPRESSION: 1. Single living fetus in vertex presentation. 2. Biophysical profile 8 out of 8. Reviewed, dictated and finalized at location A.
--- NOTE | ~2022-05-14 | US_ITS ---
EXAMINATION: US OB BPP wo non-stress DATE: 04/30/2022 10:39 INDICATION: Cholestasis of . Third trimester. TECHNIQUE: Real-time pelvic ultrasound was performed. COMPARISON: None. FINDINGS: There is a single living fetus in vertex presentation. The placenta is left fundal. The cervical luke gth is normal on transabdominal images. The length of 7.5 cm that was measured may be overestimated. heart rate is 148 beats per minute (bpm). The amniotic fluid index is 13.0 cm, which is normal. Biophysical profile performed by the technologist: breathing (30 sec sustained breathing in 30 minutes): 2 out of 2 movement (3 gross body movements in 30 minutes): 2 out of 2 tone (one episode of iisvuus-bgxgesvnp-cyocfky limb movement): 2 out of 2 Amniotic fluid pocket (2 cm): 2 out of 2 Total score: 8 out of 8 IMPRESSION: 1. Single living fetus in vertex presentation. 2. Biophysical profile 8 out of 8. Reviewed, dictated and finalized at location A. ECTOR RAG SORTING
--- NOTE | ~2022-05-14 | US_ITS ---
EXAMINATION: US OB BPP wo non-stress DATE: 04/02/2022 12:32 INDICATION: Cholestasis during third trimester TECHNIQUE: Real-time pelvic ultrasound was performed. The interpreting radiologist was not present fo r the study. COMPARISON: None. FINDINGS: There is a single living fetus in vertex presentation. The placenta is fundal. heart rate is 14 6 beats per minute (bpm). Biophysical profile performed by the technologist: breathing (30 sec sustained breathing in 30 minutes): 2 out of 2 movement (3 gross body movements in 30 minutes): 2 out of 2 tone (one episode of ulxogdo-okvxbqkxh-xvxaavf limb movement): 2 out of 2 Amniotic fluid pocket (2 cm): 2 out of 2 Total score: 8 out of 8 IMPRESSION: 1. Single living fetus in vertex presentation. 2. Biophysical profile 8 out of 8. Reviewed, dictated and finalized at location L. L HOLE GAUGER
[2022-05-14 11:35] VITALS: BP 123/81; PULSE 106
[2022-05-14 14:07] LABS: Cholic Acid 4.9 umol/L (< OR = 2.8); Deoxycholic Acid <0.5 umol/L (< OR = 2.3); Total Bile Acids 10.9 umol/L (< OR = 8.3)
== END 2022-05-18 20:01 | disposition home or self-care (01) ==
LOC: ANHOBOP 10:36
PROVIDERS: PCP Family Medicine; Visit Provider Obstetrics & Gynecology
DX: O26.619 Liver and biliary tract disorders in pregnancy, unspecified trimester (principal); K83.1 Obstruction of bile duct; Z3A.32 32 weeks gestation of pregnancy; Z3A.33 33 weeks gestation of pregnancy; Z3A.34 34 weeks gestation of pregnancy; Z3A.35 35 weeks gestation of pregnancy; Z3A.36 36 weeks gestation of pregnancy; Z3A.37 37 weeks gestation of pregnancy; Z3A.38 38 weeks gestation of pregnancy
CPT/HCPCS: 36415; 59025; 76816; 76819; 80053; 82542; 84112

== ENCOUNTER 2022-05-15 16:16 | Inpatient (IN) | payer OTHER, SELFPAY ==
[2022-05-15] VITALS (10 sets, daily range): BP systolic 110–135; BP diastolic 58–89; PULSE 79–104; TEMP 36.6–36.8; BMI 35.9
--- NOTE | 2022-05-15 17:31 | LDADM ---
This patient, Alondra Browning, was admitted to Labor/Delivery/Recovery 104 on 05/15/22 at 16:16. Plans for labor, pain management and were discussed with patient. Patient/family oriented to hospital policies and general routines including ID bracelet, bed and alarms, visiting hours, pain management, procedures, bathroom and other care routines, personal items, smoking policy, room service/diet and guest tray routines, security routines, and visiting hours. Patient/Family are encouraged to report perceived risks to care and to ask questions if they do not understand what they are told or what they should do. See OBIX for further documentation.
--- NOTE | 2022-05-15 17:40 | WPDANESEPP ---
Anes - Eval Pre Procedure Procedure: labor epidural Date/Time: 05/15/22 17:40 Surgeon: santos Preop Diagnosis: pain during labor Pre Op Diagnosis: IOL Patient Data Age: 21 Gender: F Height: 1.57 m Weight: 89 kg Last Vital Signs Pulse 89 05/15/22 17:31 BP 111/78 05/15/22 17:31 O2 Del Method Room Air 05/15/22 17:28 Allergies Allergy/AdvReac Type Severity Reaction Status Date / Time No Known Allergies Allergy Verified 05/14/22 17:15 Home Medications Medication Instructions Recorded Confirmed Type vitamins-iron fumarate 65 1 tablet PO DAILY 10/17/21 05/14/22 History mg iron-folic acid 1 mg tablet ferrous sulfate 325 mg (65 mg 325 mg PO DAILY 03/12/22 05/14/22 History iron) tablet aspirin 81 mg tablet,delayed 81 mg PO DAILY #90 tabs 03/14/22 05/14/22 Rx release ursodiol 300 mg capsule 300 mg PO BID #30 caps 03/14/22 05/14/22 Rx famotidine 20 mg tablet (Pepcid) 20 mg PO DAILY #30 tabs 04/15/22 05/14/22 Rx cetirizine 10 mg tablet 10 mg PO DAILY #10 tabs 05/07/22 05/14/22 Rx Laboratory Tests 05/15/22 05/15/22 16:27 16:27 WBC Pending RBC Pending Hgb Pending Hct Pending MCV Pending MCH Pending MCHC Pending RDW Pending Plt Count Pending MPV Pending Immature Gran % (Auto) Pending Neut % (Auto) Pending Lymph % (Auto) Pending [place] % (Auto) Pending Eos % (Auto) Pending Baso % (Auto) Pending Lymph # (Auto) Pending [place] # (Auto) Pending Eos # (Auto) Pending Baso # (Auto) Pending Abs Immat Gran (auto) Pending Absolute Neuts (auto) Pending Absolute Nucleated RBC Pending Nucleated RBC % Pending RPR Pending Patient hx anesthesia problems: none Family hx anesthesia problems: none Results Review: All pre-operative results and documents have been reviewed as part of the pre-operative evaluation. [facility] Past Medical History Medical History Bipolar disorder Cholestasis during Depression Encounter for Nexplanon removal 10/21/2020 Encounter for screening examination for sexually transmitted disease pruritus Surgical History Surgical History No pertinent past surgical history Family History Family History Grandparent Pancreatic cancer Social History Social History Smoking status: Former smoker Tobacco type: cigarettes and e-cigarettes/vaping Alcohol intake: never Substance use: never Substance use type: marijuana Lack of Transportation: No Lack of Food: Never True Current Housing: I Have Housing Concerned About Future Housing: No Difficulty Paying Gas/Electric Bills: No Difficulty Paying for Meds: No Currently Unemployed: No Education: High School Diploma/GED Difficulty w/ Childcare or Family Care: No Living arrangements: with family Occupation/Education: occupation Gender identity (if verbalized by the patient): Female Sexual Orientation (if Verbalized by the Patient): Straight or Heterosexual Spiritual care concerns: No Exam Day of Procedure 05/15/22 17:40
[2022-05-15 17:43] LABS: Basophils Percent Auto 0.1 % (0.2-1.2); Hematocrit 32.2 % (37.0-47.0); Hemoglobin 11.3 g/dL (12.0-15.0); Immature Granulocyte Absolute 0.03 K/mm3 (0.00-0.031); Immature Granulocyte Percent A 0.3 % (0-0.5); Immature Platelet Fraction Pct 19.1 % (0.9-11.2); Lymphocytes Absolute Auto 1.17 K/mm3 (0.9-3.2); Mean Corpuscular HGB Conc 35.1 g/dl (32-36); Mean Corpuscular Hemoglobin 31.8 pg (26-34); Mean Corpuscular Volume 90.7 fl (80-100); Mean Platelet Volume 13.7 fl (7.4-10.4); Monocytes Absolute Auto 0.6 K/mm3 (0.1-0.6); Monocytes Percent Auto 6.4 % (2.6-8.5); Neutrophils Absolute Auto 7.2 K/mm3 (1.3-6.7); Neutrophils Percent Auto 80.2 % (45.5-73.1); Platelet Count Result 122 k/mm3 (150-375); Red Blood Count 3.55 M/mm3 (4.2-5.4); Red Cell Distribution Width 13.6 % (11.5-14.5)
[2022-05-15] MEDS: DINOPROSTONE 10 MG VAG INSERT VAGINAL (17:58)
[2022-05-15] MEDS: ONDANSETRON INJ 4 MG/2 ML VIAL IV PUSH (23:04)
[2022-05-15] MEDS: fentaNYL CITRATE INJ (*CRX) 100 MCG/2 ML VIAL IV PUSH (23:12)
[2022-05-16] VITALS (260 sets, daily range): BP systolic 83–147; BP diastolic 46–113; PULSE 25–163; TEMP 36.3–38.5; O2SAT 86–100
[2022-05-16] MEDS: fentaNYL CITRATE INJ (*CRX) 100 MCG/2 ML VIAL IV PUSH ×6 (00:50→06:57)
[2022-05-16] MEDS: SIMETHICONE 80 MG TAB.CHEW PO ×2 (00:51→06:56)
[2022-05-16] MEDS: diphenhydrAMINE HCl INJ 50 MG/ML VIAL 25 MG IV PUSH ×3 (03:13→19:42)
[2022-05-16] MEDS: LACTATED RINGERS 1,000 ML 125 ML IV CONT ×2 (07:00→19:43)
[2022-05-16] MEDS: OXYTOCIN 30 UNITS/NS 500 ML 30 UNITS/500 ML BAG 6 UNITS IV CONT (07:40)
[2022-05-16] MEDS: ONDANSETRON INJ 4 MG/2 ML VIAL IV PUSH ×2 (11:40→21:25)
[2022-05-16 15:56] LABS: Rapid Plasma Reagin Non-Reactive (NonReactive)
--- NOTE | 2022-05-16 17:09 | WPDHPUPDATE1 ---
History and Physical Update Update Date/Time: 05/16/22 17:09 21 yo at 38w6d who presents for IOL for cholestasis of . History and Physical has been reviewed, including an updated exam of the patient. There are NO changes in the patient's condition. Risks, benefits, and alternatives have been discussed and questions answered. Patient agrees to proceed with procedure. A/P: admit to L&D routine admission orders cholestasis of , bile acids mildly elevated at 10 Rh negative, will need RhoGAM GBS negative Plan for Cervidil induction of labor Continuous monitoring Will augment as needed
[2022-05-16] MEDS: DEXTROSE 5%/LACTATED RINGERS 1,000 ML 999 ML IV CONT (23:35)
[2022-05-17] VITALS (82 sets, daily range): BP systolic 90–137; BP diastolic 32–111; PULSE 79–206; RESP 16–20; TEMP 36.2–38.4; O2SAT 94–100
[2022-05-17] MEDS: SODIUM CHLORIDE 0.9% IV 300 ML 600 ML I-UTERINE (00:47)
[2022-05-17] MEDS: AMPICILLIN 2 GM/NS 100 ML 2 GM/100 ML BAG IVPB (00:47)
[2022-05-17] MEDS: diphenhydrAMINE HCl INJ 50 MG/ML VIAL 25 MG IV PUSH (02:40)
[2022-05-17] MEDS: AMPICILLIN 1 GM/NS 50 ML 1 GM/50 ML BAG IVPB ×2 (04:50→09:01)
[2022-05-17] MEDS: ONDANSETRON INJ 4 MG/2 ML VIAL IV PUSH (08:58)
[2022-05-17] MEDS: LACTATED RINGERS 1,000 ML 125 ML IV CONT (10:26)
--- NOTE | 2022-05-17 12:00 | P.PCNOB_ITS ---
OB - Delivery Note Procedure Delivery date: 02/01/21 Procedure: Outlet forceps assisted vaginal delivery Events: Other (cholestasis of ) Intrapartal Events: Chorioamnionitis and Ineffetive Pushing/Maternal Exhaustion Induction method: Per Misoprostol Protocol Delivery augmentation: Rupture of Membranes and Pitocin Delivery monitor: External FHT and Internal Uterine Route of delivery: forceps Indication for instrumentation: maternal exhaustion (prolonged 2nd stage of labor) Episiotomy description: None Laceration Description: Perineal - 3rd Degree Delivery repair: vicryl Specimen: Yes (placenta) Quantitative Blood Loss (ml): 350 Anesthesia type: Epidural Disposition: Floor Narrative: Patient had been pushing for 2 hours. skull was noted to be +2 station and OP position. caput was noted and scalp swelling. FHT had mod variability, acceleration and occasional decelerations with pushing. Discussed forceps assisted vaginal delivery vs section. Pt was consented and agreed to FAVD. Patient positioned in stirrups with the bed broken, dorsal lithotomy. Her perineum was prepped and draped in the usual fashion. The perineal body was normal length. Pelvis felt to be adequate. + 3 station. Mod caput. Sagital suture palpated and found to be direct A-P plane with possibly 5 degrees rightward axis. Phantom application of blades performed prior to placing left hand into vaginal sidewall. Left blade gently inserted along jewelry drill operator's hand to ensure no vag lacerations - advanced along the skull with the axillary prominence in a gentle fashion. In a similar fashion, the right blade was gently placed. Blade placement was then double checked to ensure adequate placement. The forceps shank articulated well in the midline. A fingerbreadth below the suture on either side was noted. With the next contraction, gentle downward pressure was applied in sync with the contraction / pushing effort. Adequate descent was noted. There were a total of 2 pulls, and the forceps were disarticulated as the head delivered. A nuchal cord x 1 was noted and ea sily reduced. The remainder of the infant was delivered atraumatically. A segment of cord taken for gases and sample collected as above. A third degree midline perineal lac was noted. The placenta delivered spontaneously and found to be intact. Manual exploration of the uterus revealed no remaining products of conception. The sphincter muscle was identified and grasped on both side with allis forceps. The rectal mucosa was inspected and noted to be intact. The sphicter muscle was re-approximated with a series of interrupted sutures of 0-vicryl. A series of single 0-vicryl interrupted sutures were placed deep in the bed of the laceration. The apex of the defect was identified and the remainder of the laceration was repaired in the usual fashion. Rectal exam was performed to confirm integrity of the rectal mucosa. All sponge, lap, and needle counts correct x 2. Patient taken out of lithotomy position and tolerated procedure very well. NICU present for delivery. [place] Baby Date of : 05/17/22 Time of : 11:28 Weeks of gestation at delivery: 39 gender: Female Weight (pounds): 7 Weight (ounces): 4 presentation: vertex position: Right Occiput Anterior Placenta delivery description: Spontaneous Cord Vessel Description: 3 Vessels and Nuchal Cord score one minute: 7 score five minutes: 9 AMG Delivery Billing Delivery Delivery: Delivery Charge
[2022-05-17] MEDS: OXYTOCIN 30 UNITS/NS 500 ML 30 UNITS/500 ML BAG 125 UNITS IV CONT (12:01)
[2022-05-17] MEDS: WITCH HAZEL 40 PADS 1 PAD TOPICAL (12:55)
[2022-05-17] MEDS: BENZOCAINE 20% AER SPR (*SP) 56 GM CAN 1 SPRAY TOPICAL (12:56)
[2022-05-17] MEDS: HYDROcodone/acetaminophen (*CRX) 5-325 MG TABLET 1 TAB PO ×3 (12:56→22:31)
[2022-05-17] MEDS: DOCUSATE SODIUM 100 MG CAPSULE PO (17:05)
[2022-05-17] MEDS: IBUPROFEN 600 MG TABLET PO (17:05)
[2022-05-18] MEDS: HYDROcodone/acetaminophen (*CRX) 5-325 MG TABLET 1 TAB PO ×4 (03:06→22:35)
[2022-05-18] MEDS: IBUPROFEN 600 MG TABLET PO ×4 (03:09→22:34)
[2022-05-18 05:25] VITALS: BP 102/62; PULSE 83; RESP 16; TEMP 35.9
[2022-05-18 05:50] LABS: Hematocrit 27.5 % (37.0-47.0); Hemoglobin 9.4 g/dL (12.0-15.0)
--- NOTE | 2022-05-18 08:00 | WPDANLDPN2 ---
Anes-Prog Note L&D Date/Time: 05/18/22 08:00 Comfortable throughout: labor and delivery Neuraxial method: epidural Epidural/Spinal procedure site: clean & non-tender Neuro status: Neuro function grossly intact. Cardiovascular status: normal Respiratory status: normal Airway patency: baseline Mental status: baseline Post-Op hydration status: normal Vital Signs: Last Vital Signs Temp 35.9 C L 05/18/22 05:25 Pulse 83 05/18/22 05:25 Resp 16 05/18/22 05:25 BP 102/62 05/18/22 05:25 Pulse Ox 98 05/17/22 14:45 O2 Del Method Room Air 05/17/22 14:45 Pain score (VAS): 1/10 I/O: Intake & Output 05/17/22 05/18/22 05/18/22 23:59 07:59 15:59 Intake Total 500 Balance 500 Post-procedural complaints: none Patient feedback: Patient satisfied with anesthetic care.
[2022-05-18 08:30] VITALS: BP 114/81; PULSE 94; RESP 20; TEMP 36.4; O2SAT 99
[2022-05-18] MEDS: POLYSACCHARIDE IRON COMPLEX 150 MG CAPSULE PO ×2 (08:51→17:02)
[2022-05-18] MEDS: DOCUSATE SODIUM 100 MG CAPSULE PO ×2 (08:51→17:03)
[2022-05-18] MEDS: MULTIVIT/MIN/PREN/FOL AC/IRON TABLET 1 TAB PO (08:52)
--- NOTE | 2022-05-18 09:01 | P.PNOB_ITS ---
OB - PN: Subj Subjective Date/time seen: 05/18/22 0850 Interval history: Pt doing well. Sitting up on couch. Reports rectal pain when passing flatus. Denies passing any large clots. Denies dizziness. Patient comments: no complaints and pain well controlled baby status: nursing well [place] feeding status: exclusively breast feeding OB - PN: Obj Data Labs 05/18/22 05:31 Labs: Laboratory Results - last 24 hr 05/18/22 05/18/22 05:31 05:31 Hgb 9.4 L Hct 27.5 L Blood Type O Negative Antibody Screen Negative OB - PN A/P Assessment and Plan (1) Obstetric vaginal laceration with third degree perineal laceration: Code(s): O70.20 - Third degree perineal laceration during delivery, unspecified Status: Acute (2) Cholestasis during : Code(s): O26.619 - Liver and biliary tract disorders in , unspecified trimester; K83.1 - Obstruction of bile duct Status: Acute (3) Mother currently breast-feeding: Code(s): Z39.1 - Encounter for care and examination of lactating mother Status: Acute Plan day: 1 Plan: routine care Time Spent With Patient Time: Total time spent is greater than 50% in coordination of care (as documented) at patient's floor/unit and/or counseling patient: Exam Narrative: Alert and oriented. Mood is pleasant and cooperative. Urinating without difficulty. Denies passing any large clots. Perineum with minimal edema. Fundus firm and below umbilicus. Const: General: cooperative, healthy appearing, no acute distress and alert Orientation/consciousness: patient oriented x3 Limitations: no limitations Resp: Effort & Inspection: normal respiratory effort Auscultation: clear to auscultation bilaterally Cardio: Rate: regular rate GI: Inspection: normal to inspection Neuro: General: patient oriented x3 Extrem: General: normal to inspection Psych: Appearance: grossly normal Mental Status: mental status grossly normal Affect: normal affect Thought process: Normal thought process present
[2022-05-18] MEDS: RHO(D) IMMUNE GLOBULIN 300 MCG/2 ML SYRINGE IM (17:07)
[2022-05-18 18:45] VITALS: BP 111/83; PULSE 98; RESP 18; TEMP 36.3; O2SAT 100
[2022-05-18] MEDS: TETANUS,DIPHTHERIA,AC PERTUSSIS ADULT (0.5 ML) BOOSTRIX IM (22:26)
[2022-05-19 08:15] VITALS: BP 126/85; PULSE 103; RESP 18; TEMP 36.6; O2SAT 100
[2022-05-19] MEDS: POLYSACCHARIDE IRON COMPLEX 150 MG CAPSULE PO (08:20)
[2022-05-19] MEDS: IBUPROFEN 600 MG TABLET PO (08:21)
[2022-05-19] MEDS: DOCUSATE SODIUM 100 MG CAPSULE PO (08:21)
[2022-05-19] MEDS: MULTIVIT/MIN/PREN/FOL AC/IRON TABLET 1 TAB PO (08:21)
[2022-05-19] MEDS: MEASLES,MUMPS,RUBELLA VACCINE 0.5 ML VIAL SUB-Q (08:22)
--- NOTE | 2022-05-19 08:40 | PM.OBPNVD ---
OB - PN: Subj Subjective Date/time seen: 05/19/22 08:40 Patient comments: no complaints and pain well controlled baby status: doing well OB - PN: Obj Data Labs 05/18/22 05:31 Labs: Laboratory Results - last 24 hr 05/18/22 05:31 Blood Type O Negative Antibody Screen Negative Screen Negative Baby's Blood Type O pos Baby's ARIADNA Negative Doses of RhIg Required 1 OB - PN A/P Plan day: 2 Plan: routine care Time Spent With Patient Time: Total time spent is greater than 50% in coordination of care (as documented) at patient's floor/unit and/or counseling patient: Exam : Bimanual exam- vagina & uterus: other (Uterus firm, nt @U)
--- NOTE | 2022-05-19 10:03 | PC.NURSE ---
Patient viewed the discharge video Mother & Baby Care, The First Two Weeks . Patient was given the opportunity and encouraged to ask questions. Patient verbalized understanding of information shared and has been given the mother/baby guide for home reference.
--- NOTE | 2022-05-21 08:05 | PM.OBDSVD ---
DS: Admitting Diagnosis Discharge Date 05/19/22 Admitting Diagnosis intrauterine at term intrahepatic cholestasis of DS: Discharge Diagnosis Discharge Diagnosis (1) Cholestasis during : Code(s): O26.619 - Liver and biliary tract disorders in , unspecified trimester; K83.1 - Obstruction of bile duct Status: Acute (2) : Code(s): Z34.90 - Encounter for supervision of normal , unspecified, unspecified trimester Status: Acute OB - DS: Summary Hospital Course Hospital Course: 21-year-old G1 who presented for induction of labor at 38 weeks 6 days for intrahepatic cholestasis of . Patient's labor progressed. Patient had a prolonged 2nd stage of labor. Patient required forceps assisted vaginal delivery due to maternal exhaustion. Patient subsequently had 1/3 degree perineal laceration that was repaired. Her course was uncomplicated. OB Procedures : None OB Procedures Intrapartum: Forceps OB Procedures: : None Peripartum Data Laceration Description: Perineal - 3rd Degree complications: none Status at Discharge Functional status at discharge: independent ambulation Overall status at discharge: patient is back to baseline Time Spent with Patient Time attestation: Total time spent providing and/or coordinating discharge services: Time spent: Less than 30 minutes Exam Const: General: comfortable and no acute distress Resp: Effort & Inspection: normal respiratory effort Auscultation: clear to auscultation bilaterally Cardio: Rate: regular rate GI: GI Palp: Yes Soft to palpation Auscultation: normal bowel sounds Other: Fundus firm below umbilicus Psych: Appearance: grossly normal Mental Status: mental status grossly normal Affect: normal affect DS: Data Data Completed and Pending Pending studies at discharge: Pending at discharge 05/17/22 12:03 Surgical [PTH] Routine Labs on day of discharge: Labs from last 24 hours 05/18/22 05:31 Blood Type O Negative Antibody Screen Negative Screen Negative Baby's Blood Type O pos Baby's ARIADNA Negative Doses of RhIg Required 1 Discharge Plan Discharge Attending physician on discharge: Mark Coleman Consulting providers: Tierra Allen ; Carla Lindsey ; Erin Lal ; Hanh Shaefr ; Chidi Savage Discharging Clinician: Erin Lal Anticipated Discharge Date/Time: 05/19/22 08:41 Patient Disposition: Home, Self-Care Activity: may shower and pelvic rest Diet: regular Discharge Instructions: Education: Mom and Baby Guide Given to: Mother Follow-Up: Call your delivering provider's office for an appointment to be seen in: call for appointment Mom and baby should come to the [facility] for the follow-up appointment. Appointment Date/Time: May 21, 2022 at 11:00 am What to expect at your follow-up visit: Physical Assessment Call [phone] if you are unable to keep your appointment time. BREAST CARE: * Wear a snug supportive bra. * For engorgement discomfort: Breast Feeding: * Apply warm moist washcloths * Express milk as needed to relieve engorgement * Wear loose clothing * For sore nipples: * Identify correct latch-on * Apply warm moist washcloths before and after nursing * Air dry nipples after nursing * May apply Lansinoh cream to nipples EPISIOTOMY/PERINEAL CARE: * Until bleeding stops, use your derick bottle after urinating * Change your pad frequently throughout the day * You may take sitz baths several times a day (fill your bathtub with warm water and soak for 20 minutes.) Do NOT bathe in the water * No tub baths until seen by your physician - You may shower ACTIVITY: * Rest as much as possible. * Do not exercise or lift anything heavier than your
[2022-05-21 11:03] VITALS: BP 116/80; PULSE 95; RESP 18; TEMP 36.6; O2SAT 100
== END 2022-05-19 10:53 | disposition home or self-care (01) | DRG 542 ==
LOC: ANHLDR 05-16 10:04 → ANHOB2 05-17 15:15
PROVIDERS: Student in an Organized Health Care Education/Training Program; Admitting Provider Obstetrics & Gynecology; PCP Family Medicine; Visit Provider Obstetrics & Gynecology
DX: O63.1 Prolonged second stage (of labor) (principal); K83.1 Obstruction of bile duct; O41.1230 Chorioamnionitis, third trimester, not applicable or unspecified; O75.2 Pyrexia during labor, not elsewhere classified; O26.62 Liver and biliary tract disorders in childbirth; O70.20 Third degree perineal laceration during delivery, unspecified; O69.81X0 Labor and delivery complicated by cord around neck, without compression, not applicable or unspecified; O76 Abnormality in fetal heart rate and rhythm complicating labor and delivery; Z3A.38 38 weeks gestation of pregnancy; Z37.0 Single live birth
CPT/HCPCS: 36415; 85014; 85018; 85025; 85055; 85461; 86592; 86850; 86900; 86901; 88307; 90384; 90710; 90715; A9270; J0131; J0290; J1200; J2405; J2590; J2790; J2795; J3010; J7030; J7120; J7121

== ENCOUNTER 2022-07-11 09:35 | Emergency (ER) | payer OTHER, SELFPAY ==
--- NOTE | 2022-07-11 09:49 | PC.NURSE ---
Patient stating, I am not suicidal . Patient requesting ativan. Patient told she will not receive any meds until seen by an EDP. Patient stating she doesn't want to be seen. Patient out of ED with belongings and in no acute distress.
== END 2022-07-11 09:58 | disposition left against medical advice (07) ==
LOC: ANHED 09:55
PROVIDERS: PCP Family Medicine
DX: Z53.21 Procedure and treatment not carried out due to patient leaving prior to being seen by health care provider (principal)
CPT/HCPCS: 99199

== ENCOUNTER 2022-11-05 13:20 | Emergency (ER) | payer OTHER, SELFPAY ==
--- NOTE | 2022-11-05 13:25 | PC.NURSE ---
PT CAME UP TO DESK AND STATES SHE DOESN'T WANT TO WAIT FOR TRIAGE OR STAY IN THE BUSY ED ANY LONGER. ADVISED TO SPEAK WITH HER PCP FOR REFILL. PT STILL DENIES ANY SUICIDAL THOUGHTS.
== END 2022-11-05 13:25 | disposition left against medical advice (07) ==
PROVIDERS: PCP Family Medicine
DX: Z53.21 Procedure and treatment not carried out due to patient leaving prior to being seen by health care provider (principal)
CPT/HCPCS: 99199

== ENCOUNTER 2024-01-01 11:41 | Emergency (ER) | payer OTHER, SELFPAY ==
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
[2024-01-01 12:11] VITALS: BP 117/73; PULSE 94; RESP 16; TEMP 36.4; O2SAT 100
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
[2024-01-01 14:26] LABS: BEDSIDEPREGUCG Negative (Negative)
[2024-01-01 14:32] VITALS: BP 111/79; PULSE 96; RESP 20; O2SAT 100
[2024-01-01] MEDS: ONDANSETRON INJ 4 MG/2 ML VIAL IV PUSH (14:36)
[2024-01-01] MEDS: MORPHINE SULFATE (*CRX) 4 MG/ML INJ IV PUSH (14:36)
[2024-01-01 14:49] LABS: Estimated Glomerular Filt Rate > 60
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
[2024-01-01 16:32] VITALS: BP 114/78; PULSE 92; RESP 14; O2SAT 100
== END 2024-01-01 16:36 | disposition home or self-care (01) ==
PROVIDERS: Emergency Provider Emergency Medicine; PCP Family Medicine
DX: S10.93XA Contusion of unspecified part of neck, initial encounter (principal); S20.229A Contusion of unspecified back wall of thorax, initial encounter; Y04.2XXA Assault by strike against or bumped into by another person, initial encounter; F31.9 Bipolar disorder, unspecified; Z87.891 Personal history of nicotine dependence
CPT/HCPCS: 70486; 70496; 70498; 71260; 72125; 74177; 81025; 96374; 96375; 99284; J2270; J2405; Q9967

== ENCOUNTER 2024-10-29 07:49 | Emergency (ER) | payer OTHER, SELFPAY ==
--- OUTSIDE RECORDS SUMMARY | 2023-05-28 04:00 | XMS_ITS ---
Author Organization [facility]ly [facility] Address [address] [place] [address] Care Team Providers Care Journeyman Electrician Pv Installer Name Role Phone Katerina Wilson Primary Care Provider [phone] REASON FOR VISIT ON CRU - 2 week follow up Medications Medication SIG (Take, Route, Frequency, Duration) Notes Start Date End Date Status hydrOXYzine HCl 25 MG 1-2 tablet as needed at bedtime as needed Orally Once a day Not-Taking ARIPiprazole 15 MG 1 tablet Orally Once a day; Duration: 30 days CD Residential Client Active Gabapentin 100 MG 2 capsules Orally three times a day; Duration: 30 days client is on the Residential Unit Active Multivitamin - 1 tablet Orally Once a day Active Naproxen Sodium 220 MG 1-2 tablet with food or milk as needed Orally every 12 hrs Not-Taking buPROPion HCl ER (XL) 150 MG 1 tablet in the morning Orally Once a day; Duration: 30 day(s) client is on the Residential Unit 05/13/2023 Active Acetaminophen 500 MG 1-2 tablet as needed Orally every 6 hrs Active Social History Sex Assigned At : Social History Observation Description Sex Assigned At Female Encounters Encounter Location Date Provider Diagnosis [address] [address] 05/28/2023 Katerina Wilson Plan Of Treatment No Information Progress Notes * Alondra BROWNINGDOB:2000 ( 24 yo F)Acc No.[id number]:05/28/2023 UNLOCKED PROGRESS NOTE Patient: Alondra BEAULIEU Provider: Alia Wilson, JANICE, HIGHER EDUCATION ADMINISTRATOR, PMHNP-BC :2000 A ge:22 Y S ex:Female Date:05/28/2023 Address:[address] [place], [place] [id number] Check In:08:57 AM JUNIOR TECHNICAL WRITER Subjective: * Chief Complaints: * 1 . ON CRU - 2 week follow up. * Medical History: * Medications: T aking ARIPiprazole 15 MG Tablet 1 tablet Orally Once a day , Notes to Pharmacist: CD Residential Client, Taking Multivitamin - Tablet 1 tablet Orally Once a day , Taking Gabapentin 100 MG Capsule 2 capsules Orally three times a day , Notes to Pharmacist: client is on the Residential Unit, Taking Acetaminophen 500 MG Tablet 1-2 tablet as needed Orally every 6 hrs , Taking buPROPion HCl ER (XL) 150 MG Tablet Extended Release 24 Hour 1 tablet in the morning Orally Once a day , Notes to Pharmacist: client is on the Residential Unit, Not-Taking hydrOXYzine HCl 25 MG Tablet 1-2 tablet as needed at bedtime as needed Orally Once a day , Not-Taking Naproxen Sodium 220 MG Tablet 1-2 tablet with food or milk as needed Orally every 12 hrs Objective: * Vitals: Assessment: Plan: * Treatment: * Recommended Wellness and Pre vention Guidelines: * S tatus A lert L ast Done N ext Due A ction Taken N ONCOMPLIANT D epression followup 0 05/23/2023 0 05/27/2023 - - * * Electronic signature of Shannon Colin , [id number] on 10/29/2024 at 07:56 AM CDT Sign off status: Pending * Provider: Alia Wilson DNP, HIGHER EDUCATION ADMINISTRATOR, PMHNP-BC Date: 0 05/28/2023 Generated for Printing/Faxing/eTransmitting on: 0 10/29/2024 07:56 AM CDT
[2024-10-29 07:57] VITALS: BP 128/75; PULSE 112; RESP 18; TEMP 36.6; O2SAT 99
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
--- OUTSIDE RECORDS SUMMARY | 2024-10-29 07:57 | XMS_ITS | Clinical Summary ---
Author Organization [facility] Address [address] [place] [id number] Care Team Providers Care General Cargo Clerk Name Role Phone Ilene Avelar MD Primary Care Provider Allergies Active Allergy Reactions Criticality Noted Date Comments Aripiprazole Muscle pain Medium 12/02/2023 Unclassified Drug Swollen tongue High 11/06/2023 Pt unsure of which medications. Medications hydrOXYzine (ATARAX) 25 mg tablet Take 1 tablet (25 mg total) by mouth every 6 (six) hours 12 tablet 11/27/2020 Active PNV with vlildvz-lhxm-[id number] 27 mg iron- 1 mg tablet 1 tablet daily Active divalproex DR (DEPAKOTE) 500 mg EC tablet Take 1 tablet (500 mg total) by mouth 2 (two) times a day for 7 days 14 tablet 11/24/2023 Active QUEtiapine (SEROquel) 200 mg tablet Take 1 tablet (200 mg total) by mouth daily 09/07/2023 Active OLANZapine (ZyPREXA) 5 mg tabletIndicatio ns:Bipolar Disorder Take 1 tablet (5 mg total) by mouth nightly 5 tablet 12/19/2023 Active hydrOXYzine (VISTARIL) 25 mg capsule Take 1 capsule (25 mg total) by mouth 3 (three) times a day as needed for anxiety 15 capsule 12/19/2023 Active naproxen (NAPROSYN) 500 mg tabletIndicatio ns:Pain Take 1 tablet (500 mg total) by mouth 2 (two) times a day with meals 30 tablet 12/19/2023 Active Active Problems Problem Noted Date Diagnosed Date Drug-seeking behavior 12/19/2023 Tongue pain 12/19/2023 Polysubstance abuse 12/19/2023 Medical History Medical History Date Comments Depression Bipolar disorder Anxiety Crack cocaine use Social History Tobacco Use Types Packs/Day Years Used Date Smoking Tobacco: Every Day Cigarettes Tobacco Cessation:Ready to Q uit: Not Asked; Counseling Given: Not Answered Alcohol Use Standard Drinks/Week Comments Not Currently 0 (1 standard drink = 0.6 oz pur e alcohol) Personal Safety Answer Date Recorded Have you ever been in or are you currently in a harmful physical or emotional relationship or is someone making you feel afraid or unsafe? Denies 01/14/2024 Comments Unknown Sex and Gender Information Value Date Recorded Sex Assigned at Not on file Legal Sex Female 5:49 PM CDT Gender Identity Not on file Sexual Orientation Not on file Obstetrics History Last Filed Vital Signs Vital Sign Reading Time Taken Comments Blood Pressure 102/72 01/14/2024 11:19 PM PHYSICAL EDUCATION SPECIALIST Pulse 97 01/14/2024 11:19 PM PHYSICAL EDUCATION SPECIALIST Temperature 36.5 C (97.7 F) 01/14/2024 11:19 PM PHYSICAL EDUCATION SPECIALIST Respiratory Rate 18 01/14/2024 11:19 PM PHYSICAL EDUCATION SPECIALIST Oxygen Saturation 100% 01/14/2024 11:19 PM PHYSICAL EDUCATION SPECIALIST Inhaled Oxygen Concentration - - Weight 72.1 kg (159 lb) 01/14/2024 8:23 PM PHYSICAL EDUCATION SPECIALIST Height 157.5 cm (5' 2) 01/14/2024 8:23 PM PHYSICAL EDUCATION SPECIALIST Body Mass Index 29.08 01/14/2024 8:23 PM PHYSICAL EDUCATION SPECIALIST Plan of Treatment Health Maintenance Due Date Last Done Comments Cervical Cancer Screening 1998 Depression Screening 1998 Hepatitis C Screening 1998 DTaP/Tdap/Td Vaccine (1 - Tdap) 2009 Varicella Vaccines (1 of 2 - 13+ 2-dose series) 2011 HPV Vaccines (1 - 3-dose series) 2013 Hepatitis B Screening 2016 Regular Well Visit/Exam 18-64 2016 Pneumococcal vaccine <65 (1 of 2 - PCV) 2017 Influenza Vaccine (#1) 2024 12/25/[address] [facility] [employer] [place] [address] [place] [address] [facility] [facility]AN [place] [facility] Care Teams General Cargo Clerk Relationship Specialty Start Date End Date Ilene Avelar MD [address] [place] [id number] PCP - General Family Medicine 01/14/24
--- OUTSIDE RECORDS SUMMARY | 2024-10-29 07:57 | XMS_ITS | Encounter Summary ---
Author Organization [facility] Address [address] [facility] [place] [address] Care Team Providers Care Manager Ambulatory Name Role Phone Ilene Koroma MD Primary Care Provider [phone] None, Physician Primary Care Provider Unavailabl e Ilene Koroma MD Unavailable [phone] Reason for Visit * Reason Onset Date Comments Results 10/03/2019 Encounter Details Date Type Department Care Team (Late st Contact Info) Description 10/03/2019 Telephone [facility] [address] [place] [address] Massiel Ambriz Results Social History Tobacco Use Types Packs/Day Years Used Date Smoking Tobacco: Never Assessed Comments Unknown Sex and Gender Information Value Date Recorded Sex Assigned at Not on file Legal Sex Female 8:20 AM CDT Gender Identity Not on file Sexual Orientation Not on file COVID-19 Exposure Response Date Recorded In the last month, have you been in contact with someone who was confirmed or suspected to have Coronavirus / COVID-19? Unable to assess 09/29/2019 3:43 PM CDT documented as of this encounter Miscellaneous Notes * Telephone Encounter - Massiel Ambriz - 10/03/2019 1:28 PM CDT Pt was notified of negative covid result and voiced understanding 8-2-20 documented in this encounter Plan of Treatment Not on file documented as of this encounter Visit Diagnoses Not on filedocumented in this encounter Care Teams Manager Ambulatory Relationship Specialty Start Date End Date Ilene Koroma MD PCP - General Family Medicine 09/29/19 11/26/23 None, Physician PCP - General 11/27/23 Ilene Koroma MD Family Medicine 11/27/23 documented as of this encounter
--- NOTE | 2024-10-29 08:00 | ECG_ITS ---
Test Date: 2024-10-29 08:03:36 Measurements Intervals [place] Rate: 97 P: 56 DC: 146 QRS: 82 QRSD: 88 T: 51 QT: 331 QTc: 422 Interpretive Statements SINUS RHYTHM DELAYED PRECORDIAL R/S TRANSITION BORDERLINE ECG No previous ECG available for comparison Electronically Signed On 10-29-2024 08:35:09 CDT by Cameron Hicks D.O.
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
[2024-10-29 08:14] LABS: Hematocrit 38.9 % (37.0-47.0); Hemoglobin 13.0 g/dL (12.0-15.0); Immature Granulocyte Percent A 0.2 % (0-0.5); Lymphocytes Absolute Auto 1.72 K/mm3 (0.9-3.2); Mean Corpuscular HGB Conc 33.4 g/dl (32-36); Mean Corpuscular Hemoglobin 29.0 pg (26-34); Mean Corpuscular Volume 86.8 fl (80-100); Nucleated Red Blood Cells Absolute Auto 0.000 K/mm3 (0.0-0.012); Nucleated Red Blood Cells Perc 0.0 % (0.0-0.2); Platelet Count Result 250 k/mm3 (150-375); Red Blood Count 4.48 M/mm3 (4.2-5.4); White Blood Count 9.0 K/mm3 (4.5-10.0)
--- NOTE | 2024-10-29 08:21 | PC.NURSE ---
Patient ambulated to the restroom with steady gate
--- OUTSIDE RECORDS SUMMARY | 2024-10-29 08:23 | XMS_ITS | Clinical Summary ---
Author Organization [facility] Address [address] [address] Care Team Providers [facility] Marker Name Role Phone None, Physician Primary Care Provider Ilene Espinoza MD Unavailable [phone] Source Comments [facility],non-owned Affiliates and Associated Physician Practices is amultiple site organization consisting of ambulatory clinics and hospital sitesin [place], [place], [place] and [place]. This disclosure is being madepursuant to the Care Everywhere program and may not contain all information available regarding this patient. Last updated 17.[facility] Allergies Active Allergy Reactions Criticality Noted Date Comments Aripiprazole Other Medium 12/07/2023 Difficulty swallowing, muscles spasms Medications * This document contains information received from the source organization and may not represent a complete record from that organization. * Be aware that medications may not be up to date on this document. Alwaysverify current medications with the patient. naproxen (Naprosyn) 500 MG tabletIndicati ons:Pain TAKE ONE TABLET BY MOUTH TWICE DAILY 60 tablet 4 Active traZODone (Desyrel) 100 MG tabletIndicati ons:Insomnia Take 1 (one) tablet by mouth nightly as needed for Insomnia Reasons: Trouble Sleeping 30 tablet 10/11/2024 12:16 PM CDT 5 Active lithium CR (Lithobid) 300 MG tabletIndicati ons:Bipolar Mood Disorder Take 1 (one) tablet by mouth 2 times daily Reasons: Manic-Depressi on 30 tablet 1 10/11/2024 12:16 PM CDT 5 Active OLANZapine (ZyPREXA) 10 MG tabletIndicati ons:Manic Phase of Bipolar Mood Disorder Take 1 (one) tablet by mouth once daily as needed (agitation) Reasons: Manic Phase of Manic-Depressi on 30 tablet 10/11/2024 12:16 PM CDT [address] (Depakote) 500 MG tablet TAKE ONE TABLET BY MOUTH 3 TIMES DAILY 90 tablet 12/30/2023 6:06 PM CDT 4 10/12/19 25 Discontinu ed(Tx Complete) hydrOXYzine pamoate (Vistaril) 25 MG capsule TAKE ONE CAPSULE BY MOUTH EVERY 4 HOURS NEEDED FOR ANXIETY 60 capsule 12/30/2023 6:06 PM CDT 4 10/12/19 25 Discontinu ed(Tx Complete) nicotine (Nicoderm CQ) 21 MG/24HR patch APPLY ONE PATCH ONCE DAILY 28 patch 12/30/2023 6:06 PM CDT 4 10/12/19 25 Discontinu ed(List Clean-Up) OLANZapine (ZyPREXA) 5 MG tablet TAKE ONE TABLET BY MOUTH AT BEDTIME 30 tablet 12/30/2023 6:06 PM CDT 4 10/12/19 25 Discontinu ed(Dose Adjustment ) QUEtiapine (SEROquel) 100 MG tablet TAKE ONE TABLET BY MOUTH TWICE DAILY 60 tablet 12/30/2023 6:06 PM CDT 4 10/12/19 25 Discontinu ed(Tx Complete) QUEtiapine (SEROquel) 200 MG tablet TAKE ONE TABLET BY MOUTH AT BEDTIME 30 tablet 4 10/12/19 25 Discontinu ed(Tx Complete) buPROPion XL 24hr (Wellbutrin XL) 150 MG tablet TAKE ONE TABLET BY MOUTH ONCE DAILY 30 tablet 4 10/12/19 25 Discontinu ed(Tx Complete) traZODone (Desyrel) 50 MG tablet TAKE ONE TABLET BY MOUTH AT BEDTIME NEEDED FOR SLEEP 30 tablet 12/30/2023 6:06 PM CDT 4 10/12/19 25 Discontinu ed(Dose Adjustment ) sertraline (Zoloft) 50 MG tabletIndicati ons:Major Depressive Disorder Take 1 (one) tablet by mouth once daily Reasons: Major Depressive Disorder 10/12/19 25 Discontinu ed(Tx Complete) Vit-DSS-Fe Fum-FA ( vitamin with iron) tablet Take 1 (one) tablet by mouth once daily 10/12/19 25 Discontinu ed(Tx Complete) Active Problems Problem Noted Date Diagnosed Date Depression with anxiety 10/06/2024 Bipolar 1 disorder, mixed, severe 12/07/2023 Bipolar I disorder 12/07/2023 Amphetamine use disorder, moderate 11/28/2023 Bipolar I disorder with mixed features Cannabis use disorder, moderate, dependence 11/02 Cocaine use disorder, moderate, dependence 11/27 Resolved Problems Problem Noted Date Diagnosed Date Resolved Date psychosis 10/06/2024 025 Behavior disturbance 10/06/2024 025 Psychosis, unspecified psychosis type 10/06/2024 10/11/2024 Urinary tract infection with out hematuria, site unspecified 10/06/2024 10/11/2024 Cocaine dependence, continuous 11/28/2023 11/28/2023 Encounters * This document contains information received from the source organization and may not represent a complete record from that organization. Date Type Department Care Team Description 10/06/2024 Travel from Last 3 Months Social History Tobacco Use Types Packs/Day Years Used Date Smoking Tobacco: Every Day Cigarettes Smokeless Tobacco: Current Snuff Alcohol Use Standard Drinks/Week Comments Yes 0 (1 standard drink = 0.6 oz pur e alcohol) 2-4 times a month AUDIT-C Answer Date Recorded Q1: How often do you have a drink containing alcohol? Never 10/06/2024 Q2: How many drinks containi ng alcohol do you have on a typical day when you are drinking? Patient does not drink Q3: How often do you have si x or more drinks on one occasion? Never 10/06/2024 Overall Financial Resource Strain (CARDIA) Answe r Date Recorded How hard is it for you to pa y for the very basics like food, housing, medical care, and heating? Very hard 10/06/2024 PHQ-2 Answer Date Recorded Patient Health Questionnaire-2 Score 2 12/30/2023 [facility] - Occupational Stress Questionnaire Answer Date Recorded Do you feel stress - tense, restless, nervous, or anxious, or unable to sleep at night because your mind is troubled all the time - these days? To some extent 10/06/2024 Hunger Vital Sign Answer Date Recorded Within the past 12 months, y ou worried that your food would run out before you got the money to buy more. Sometimes true Within the past 12 months, t he food you bought just didn't last and you didn't have money to get more. Sometimes true 08/2024 PRAPARE - Transportation Answer Date Re corded In the past 12 months, has l ack of transportation kept you from medical appointments or from getting medications? No 08/2024 In the past 12 months, has l ack of transportation kept you from meetings, work, or from getting things needed for daily living? Yes 10/06/2024 Housing Stability Vital Sign Answer Pasha e Recorded In the last 12 months, was t here a time when you were not able to pay the mortgage or rent on time? Yes 12/07/2023 In the last 12 months, how many places have you lived? 3 12/07/2023 In the last 12 months, was t here a time when you did not have a steady place to sleep or slept in a penitentiary (including now)? Yes 12/07/2023 Housing Stability Vital Sign Answer Pasha e Recorded In the last 12 months, was t here a time when you were not able to pay the mortgage or rent on time? Yes 10/06/2024 In the past 12 months, how m any times have you moved where you were living? 3 10/06/2024 At any time in the past 12 m [facility], were you homeless or living in a penitentiary (including now)? Yes 10/06/2024 Comments No Sex and Gender Information Value Date Recorded Sex Assigned at Not on file Legal Sex Female 8:20 AM CDT Gender Identity Not on file Sexual Orientation Not on file Last Filed Vital Signs Vital Sign Reading Time Taken Comments Blood Pressure 114/78 10/11/2024 8:13 AM CDT Pulse 83 10/11/2024 8:13 AM CDT Temperature 35.8 C (96.5 F) 10/11/2024 8:13 AM CDT Respiratory Rate 16 10/11/2024 8:13 AM CDT Oxygen Saturation 96% 10/11/2024 8:13 AM CDT Inhaled Oxygen Concentration - - Weight 86 kg (189 lb 8 oz) 10/10/2024 7:30 AM CD T Height 157.5 cm (5' 2) 10/06/2024 12:38 AM CDT Body Mass Index 34.66 10/06/2024 12:38 AM CDT Plan of Treatment Health Maintenance Due Date Last Done Comments HPV VACCINE (1 - 3-dose series) 2013 DTAP/TDAP/TD VACCINES (1 - Tdap) 2017 HEPATITIS B VACCINE (1 of 3 - 19+ 3-dose series) 2017 PNEUMOCOCCAL VACCINE (1 of 2 - PCV) 2017 PAP SMEAR 02/10/2023 02/11/2020 COVID-19 VACCINE (1 - 2023-2 5 season) 2023 INFLUENZA VACCINE (#1) 2024 ZOSTER VACCINE (1 of 2) 2048 HEPATITIS C SCREENING Completed 02/20/2024 , 02/20/2024 HIV SCREENING Completed 02/20/2024, 12/02/2023 HIB VACCINE Aged Out No longer eligi ble based on patient's age to complete this topic MENINGOCOCCAL (Group B) VACCINE SHARED DECISION-MAKING Aged Out No longer eligible based on patient's age to complete this topic MENINGOCOCCAL GROUPS A/C/Y/W VACCINE Aged Out No longer eligible b ased on patient's age to complete this topic Procedures Procedure Name Priority Date/Time Associated Diagnosis Comments HCG URINE QUALITATIVE STAT 10/06/2024 2:14 AM CDT URINALYSIS REFLEX MICROSCOPIC REFLEX CULTURE STAT 10/06/2024 2:14 AM CDT DRUG ABUSE URINE PANEL STAT 2:14 AM CDT CULTURE URINE STAT 10/06/2024 2:14 AM CDT VITAMIN D 25-HYDROXY AM Draw 10/06/2024 1:47 AM CDT VITAMIN B12 AM Draw 10/06/2024 1:47 AM CDT TSH STAT 10/06/2024 1:47 AM CDT SALICYLATE LEVEL BLOOD STAT 1:47 AM CDT ALCOHOL ETHYL BLOOD STAT 10/06/2024 1 :47 AM CDT ACETAMINOPHEN LEVEL STAT 10/06/2024 1 :47 AM CDT COMPREHENSIVE METABOLIC PANEL STAT 10/06/2024 1:47 AM CDT CBC W AUTO DIFFERENTIAL STAT 10/06/2024 1:47 AM CDT HIV-1 HIV-2 ANTIBODY + HIV P24 AG PANEL STAT 12/02/2023 6:53 PM CDT from Last 3 Months or Most Recently Relevant to Health Maintenance Results * (ABNORMAL) URINALYSIS REFLEX MICROSCOPIC REFLEX CULTURE (10/06/2024 2:14 AM CDT) Color UA Yellow Yellow, Straw 10/06/2024 2:27 AM CDT [facility] Clarity UA Clear Clear 10/06/2024 2:27 AM CDT [facility] Glucose UA Normal Normal 10/06/2024 2:27 AM CDT [facility] Bilirubin UA Negative Negative 10/06/2024 2:27 AM CDT [facility] Ketone UA Negative Negative 10/06/2024 2:27 AM CDT [facility] Specific [place] UA 1.025 1.005 - 1.030 10/06/2024 2:27 AM CDT [facility] Blood UA 1+(A) Negative 10/06/2024 2:27 AM CDT [facility] pH UA 6.0 5.0 - 8.0 10/06/2024 2:27 AM CDT [facility] Protein UA Negative Negative 10/06/2024 2:27 AM CDT [facility] Urobilinogen UA Normal Normal mg/dL 10/06/2024 2:27 AM CDT [facility] Nitrite UA Negative Negative 10/06/2024 2:27 AM CDT [facility] Leukocyte Esterase UA 500 RACQUEL/uL(A) Negative 10/06/2024 2:27 AM CDT [facility] RBC UA 6-10(A) 0 - 5 # /hpf 10/06/2024 2:27 AM CDT [facility] WBC UA 21-50(A) 0 - 5 # /hpf 10/06/2024 2:27 AM CDT [facility] Bacteria UA None Seen None Seen 10/06/2024 2:27 AM CDT [facility] Squamous Epithelial Cells 3-5 0 - 5 /hpf 10/06/2024 2:27 AM CDT [facility] Mucus UA 1+ /LPF 10/06/2024 2:27 AM CDT [facility] Reflex Status Culture to follow 10/06/2024 2:27 AM CDT [facility] Urine URINE SPECIMEN OBTAINED BY CLEAN CATCH PROCEDURE / Unknown Collection / Unknown 10/06/2024 2:14 AM CDT 10/06/2024 2:20 AM CDT us Deyvi Barrios MD LAB - URINALYSIS ORDERABLES Nichole l Result Performing Organization Address [facility] Co de Phone Number [facility] [address] [place] [address] * HCG URINE QUALITATIVE (10/06/2024 2:14 AM CDT) hCG Qualitative Urine Negative Negative 10/06/2024 2:29 AM CDT [facility] Urine URINE / Unknown Collection / Unknown 10/06/2024 2:14 AM CDT 10/06/2024 2:20 AM CDT us Deyvi Barrios MD LAB - URINALYSIS ORDERABLES Nichole l Result Performing Organization Address City/[facility]/ZIP Co de Phone Number [facility] [address] [facility] [phone] * CULTURE URINE (10/06/2024 2:14 AM CDT) Pathologist [facility] Culture Urine <10,000 CFU/mL urogenital caitlin DELL 10/07/2024 10:57 PM CDT [facility] Urine URINE SPECIMEN OBTAINED BY CLEAN CATCH PROCEDURE / Unknown Collection / Unknown 10/06/2024 2:14 AM CDT 10/06/2024 2:20 AM CDT Deyvi Barrios MD LAB - MICROBIOLOGY ORDERABLES Fi nal Result [facility] [address] [place] [address], [facility] [phone] * DRUG ABUSE URINE PANEL (10/06/2024 2:14 AM CDT) Cannabinoids Screen Urine Not detected Not detected 10/06/2024 2:38 AM CDT [facility] Phencyclidine Screen Urine Not detected Not detected 10/06/2024 2:38 AM CDT [facility] Cocaine Screen Urine Not detected Not detected 10/06/2024 2:38 AM CDT [facility] Opiate Screen Urine Not detected Not detected 10/06/2024 2:38 AM CDT [facility] Amp/Methamphetamin es Screen Urine Not detected Not detected 10/06/2024 2:38 AM CDT [facility] Benzodiazepines Screen Urine Not detected Not detected 10/06/2024 2:38 AM CDT [facility] Barbiturates Screen Urine Not detected Not detected 10/06/2024 2:38 AM CDT [facility] Oxycodone Screen Urine Not detected Not detected 10/06/2024 2:38 AM CDT [facility] Fentanyl Urine Not detected Not detected 10/06/2024 2:38 AM CDT [facility] Urine URINE / Unknown Collection / Unknown 10/06/2024 2:14 AM CDT 10/06/2024 2:20 AM CDT Narrative [facility] - 10/06/2024 2:38 AM CDT A presumptive positive result indicates the detection of a drug at a concentration above the cutoff concentrations listed below. Clinical consideration and professional judgement should be applied to any drug of abuse test result, particularly when preliminary positive results are obtained by the screening assay. Consider confirmatory testing of positive screening results, as clinically indicated. A negative result may not necessarily indicate drug-free urine. Negative results can be obtained when drug is present but below the cut-off level of the test. Drug Screening Test Cutoff Values: AMP Amphetamine (d-Amphetamine) 500 ng/mL BAR Barbiturates (Butalbital) 200 ng/mL BZO Benzodiazepines (Nordiazepam) 200 ng/mL JO ANN Cocaine (Benzoylecgonine) 150 ng/mL MAMP Methamphetamine (d-Methamphetamine) 500 ng/mL OPI Opiates (Morphine) 300 ng/mL OXY Oxycodone (Oxycodone) 300 ng/mL PCP Phencyclidine (Phencyclidine) 25 ng/mL THC Cannabinoids (90-bai-3-ttcqchq-m2-DCL) 50 ng/mL FEN Fentanyl (Fentanyl) 1.5 ng/mL Deyvi Barrios MD LAB - URINE CHEMISTRY ORDERABLES Final Result Performing Organization Address [facility]/ZIP Co de Phone Number [facility] [address] [place] [address] * VITAMIN D 25-HYDROXY (10/06/2024 1:47 AM CDT) [facility] Vitamin D, 25 Hydroxy 51.5 30 - 80 ng/mL 10/07/2024 1:17 AM CDT [facility] Blood BLOOD SPECIMEN / Unknown Venipuncture / Unknown 10/06/2024 1:47 AM CDT 10/06/2024 1:47 AM CDT Narrative [facility] - 10/07/2024 1:17 AM CDT Vitamin D Status: Deficiency <20 ng/mL Insufficiency 20-29 ng/mL Sufficiency 30-100 ng/mL Potential Toxicity >100 ng/mL Milad Dennis MD LAB - CHEMISTRY ORDERABLES Final Result Performing Organization Address [facility]/ZIP Co de Phone Number [facility] [address] [place] [address], [facility] [phone] * CBC W AUTO DIFFERENTIAL (10/06/2024 1:47 AM CDT) WBC 8.7 4.0 - 10.7 x10E9/L 10/06/2024 1:52 AM CDT [facility] RBC Count 4.43 3.90 - 5.20 x10E12/L 10/06/2024 1:52 AM CDT [facility] Hemoglobin 13.4 11.9 - 15.8 g/dL 10/06/2024 1:52 AM CDT [facility] Hematocrit 37.9 34.8 - 46.1 % 10/06/2024 1:52 AM CDT [facility] MCV 85.6 80.0 - 98.0 fL 10/06/2024 1:52 AM CDT [facility] MCH 30.2 26.7 - 33.6 pg 10/06/2024 1:52 AM CDT [facility] MCHC 35.4 31.7 - 36.3 g/dL 10/06/2024 1:52 AM CDT [facility] RDW-CV 11.9 11.3 - 14.8 % 10/06/2024 1:52 AM CDT [facility] Platelet Count 334 150 - 420 x10E9/L 10/06/2024 1:52 AM CDT [facility] MPV 11.2 7.8 - 11.4 fL 10/06/2024 1:52 AM CDT [facility] Neutrophil % 65.9 41.0 - 74.0 % 10/06/2024 1:52 AM CDT [facility] Lymphocyte % 25.4 17.0 - 47.0 % 10/06/2024 1:52 AM CDT [facility] Monocyte % 7.7 3.0 - 11.0 % 10/06/2024 1:52 AM CDT [facility] Eosinophil % 0.6 0.0 - 7.0 % 10/06/2024 1:52 AM CDT [facility] Basophil % 0.3 0.0 - 1.6 % 10/06/2024 1:52 AM CDT [facility] Immature Granulocytes % 0.1 0.0 - 1.0 % 10/06/2024 1:52 AM CDT [facility] Neutrophil Absolute 5.72 1.60 - 7.50 x10E9/L 10/06/2024 1:52 AM CDT [facility] Lymphocyte Absolute 2.21 1.00 - 4.40 x10E9/L 10/06/2024 1:52 AM CDT [facility] Monocyte Absolute 0.67 0.15 - 1.00 x10E9/L 10/06/2024 1:52 AM CDT [facility] Eosinophil Absolute 0.05 0.00 - 0.60 x10E9/L 10/06/2024 1:52 AM CDT [facility] Basophil Absolute 0.03 0.00 - 0.13 x10E9/L 10/06/2024 1:52 AM CDT [facility] Blood BLOOD SPECIMEN / Unknown Venipuncture / Unknown 10/06/2024 1:47 AM CDT 10/06/2024 1:47 AM CDT us Deyvi Barrios MD LAB - HEMATOLOGY ORDERABLES Nichole l Result [facility] [address] [phone] * (ABNORMAL) COMPREHENSIVE METABOLIC PANEL (10/06/2024 1:47 AM CDT) Sodium 141 136 - 145 mmol/L 10/06/2024 2:06 AM CDT [facility] Potassium 3.9 3.5 - 5.1 mmol/L 10/06/2024 2:06 AM CDT [facility] Chloride 109(H) 98 - 107 mmol/L 10/06/2024 2:06 AM CDT [facility] CO2 19(L) 22 - 29 mmol/L 10/06/2024 2:06 AM CDT [facility] Anion Gap 13 6 - 16 mmol/L 10/06/2024 2:06 AM CDT [facility] Glucose 80 70 - 99 mg/dL 10/06/2024 2:06 AM CDT [facility] BUN 16 5.3 - 18.7 mg/dL 10/06/2024 2:06 AM CDT [facility] Creatinine 0.64 0.57 - 1.11 mg/dL 10/06/2024 2:06 AM CDT [facility] BUN/Creatinine Ratio 25.0(H) 11.2 - 18.1 10/06/2024 2:06 AM CDT [facility] Calcium 9.3 8.4 - 10.4 mg/dL 10/06/2024 2:06 AM CDT [facility] Protein Total 7.5 6.4 - 8.3 gm/dL 10/06/2024 2:06 AM CDT [facility] Albumin 4.1 3.1 - 4.5 gm/dL 10/06/2024 2:06 AM CDT [facility] ALT 52 6 - 57 U/L 10/06/2024 2:06 AM CDT [facility] AST 34 10 - 48 U/L 10/06/2024 2:06 AM CDT [facility] Alkaline Phosphatase 172(H) 40 - 150 U/L 10/06/2024 2:06 AM CDT [facility] Bilirubin Total 0.5 0.2 - 1.2 mg/dL 10/06/2024 2:06 AM CDT [facility] Globulin Total 3.4 1.3 - 4.7 gm/dL 10/06/2024 2:06 AM CDT [facility] Albumin/Globulin Ratio 1.2 1.1 - 2.2 10/06/2024 2:06 AM CDT [facility] Osmolality Calculated 272 260 - 284 mOsm/kg 10/06/2024 2:06 AM CDT [facility] eGFR by CKD-EPI >90 >=90 mL/min/1.7 3 m2 10/06/2024 2:06 AM CDT [facility] Comment:Estimated Glomerular Filtration Rate (eGFR) calculated using the CKD-EPI Creatinine Equation (2020), per the National Kidney Foundation and [place] [employer] recommendations. Blood BLOOD SPECIMEN / Unknown Venipuncture / Unknown 10/06/2024 1:47 AM CDT 10/06/2024 1:47 AM CDT Narrative [facility] - 10/06/2024 2:06 AM CDT ADA Comment: The [place] [employer] recommends a fasting glucose concentration of 99 mg/dL as the upper limit of normal. us Deyvi Barrios MD LAB - CHEMISTRY ORDERABLES Final Result [facility] [address] [place] [address] * VITAMIN B12 (10/06/2024 1:47 AM CDT) Pathologist [facility] Vitamin B12 578 213 - 816 pg/mL 10/07/2024 1:16 AM CDT [facility] Blood BLOOD SPECIMEN / Unknown Venipuncture / Unknown 10/06/2024 1:47 AM CDT 10/06/2024 1:47 AM CDT Milad Dennis MD LAB - CHEMISTRY ORDERABLES Final Result [facility] [address] [place] [address] * ALCOHOL ETHYL BLOOD (10/06/2024 1:47 AM CDT) Pathologist [facility] Ethanol <10.0 <10 mg/dL 10/06/2024 2:06 AM CDT [facility] Blood BLOOD SPECIMEN / Unknown Venipuncture / Unknown 10/06/2024 1:47 AM CDT 10/06/2024 1:47 AM CDT us Deyvi Barrios MD LAB - CHEMISTRY ORDERABLES Final Result Performing Organization Address [facility]/ZIP Co de Phone Number [facility] [address] [place] [address] * TSH (10/06/2024 1:47 AM CDT) Pathologist [facility] TSH 2.09 0.35 - 4.94 uIU/mL 10/06/2024 2:30 AM CDT [facility] Blood BLOOD SPECIMEN / Unknown Venipuncture / Unknown 10/06/2024 1:47 AM CDT 10/06/2024 1:47 AM CDT us Deyvi Barrios MD LAB - CHEMISTRY ORDERABLES Final Result [facility] [address] [place], [place] [address] [phone] * (ABNORMAL) SALICYLATE LEVEL BLOOD (10/06/2024 1:47 AM CDT) Salicylate <5.0(L) 15.0 - 30.0 mg/dL 10/06/2024 2:06 AM CDT [facility] Blood BLOOD SPECIMEN / Unknown Venipuncture / Unknown 10/06/2024 1:47 AM CDT 10/06/2024 1:47 AM CDT Narrative [facility] - 10/06/2024 2:06 AM CDT Therapeutic range: 15 to 30 mg/dL us Deyvi Barrios MD LAB - CHEMISTRY ORDERABLES Final Result Performing Organization Address City/[facility]/ZIP Co de Phone Number [facility] [address] [place] [address] * (ABNORMAL) ACETAMINOPHEN LEVEL (10/06/2024 1:47 AM CDT) Pathologist [facility] Acetaminophen <3.0(L) 10.0 - 30.0 ug/mL 10/06/2024 2:06 AM CDT [facility] Blood BLOOD SPECIMEN / Unknown Venipuncture / Unknown 10/06/2024 1:47 AM CDT 10/06/2024 1:47 AM CDT us Deyvi Barrios MD LAB - CHEMISTRY ORDERABLES Final Result Performing Organization Address City/[facility]/ZIP Co de Phone Number [facility] [address] [place] [address] * HIV-1 HIV-2 ANTIBODY + HIV P24 AG PANEL (12/02/2023 6:53 PM CDT) Pathologist [facility] HIV1/2 Ab + P24 Ag Non Reactive Non Reactive 12/02/2023 7:47 PM CDT [facility] Blood BLOOD SPECIMEN / Unknown Venipuncture / Unknown 12/02/2023 6:53 PM CDT 12/02/2023 6:59 PM CDT Narrative [facility] - 12/02/2023 7:47 PM CDT No Laboratory evidence of HIV infection. us Vernell Orozco MD LAB - CHEMISTRY ORDERABLES Fin al Result [facility] [address] [place] [address] from Last 3 Months or Most Recently Relevant to Health Maintenance Insurance [facility] [employer] [place] MEDICA[place] HOME STATE HE[employer] PLAN [facility] [place] [employer] HE[employer] PLAN [facility] Advance Directives * Full Code (Latest Code Status on File) Date Activated Date Inactivated Comments 10/06/2024 6:13 AM 10/11/2024 1:32 PM * Full Code Date Activated Date Inactivated Comments 12/07/2023 8:44 PM 12/15/2023 1:24 PM * Full Code Date Activated Date Inactivated Comments 11/28/2023 6:06 AM 12/01/2023 3:18 PM Care Teams [facility] Marker Relationship Specialty Start Date End Date None, Physician PCP - General 11/27/23 Ilene Koroma MD Family Medicine 11/27/23
--- OUTSIDE RECORDS SUMMARY | 2024-10-29 08:23 | XMS_ITS | Clinical Summary ---
Author Organization [facility] Address [address] [place] [id number] Care Team Providers Care Dry Goods Inspector Name Role Phone Ilene Avelar MD Primary Care Provider Allergies Active Allergy Reactions Criticality Noted Date Comments Aripiprazole Muscle pain Medium 12/02/2023 Unclassified Drug Swollen tongue High 11/06/2023 Pt unsure of which medications. Medications hydrOXYzine (ATARAX) 25 mg tablet Take 1 tablet (25 mg total) by mouth every 6 (six) hours 12 tablet 11/27/2020 Active PNV with [id number] 27 mg iron- 1 mg tablet 1 [...] Comments Blood Pressure 102/72 01/14/2024 11:19 PM ICE PLATFORM SUPERVISOR Pulse 97 01/14/2024 11:19 PM ICE PLATFORM SUPERVISOR Temperature 36.5 C (97.7 F) 01/14/2024 11:19 PM ICE PLATFORM SUPERVISOR Respiratory Rate 18 01/14/2024 11:19 PM ICE PLATFORM SUPERVISOR Oxygen Saturation 100% 01/14/2024 11:19 PM ICE PLATFORM SUPERVISOR Inhaled Oxygen Concentration - - Weight 72.1 kg (159 lb) 01/14/2024 8:23 PM ICE PLATFORM SUPERVISOR Height 157.5 cm (5' 2) 01/14/2024 8:23 PM ICE PLATFORM SUPERVISOR Body Mass Index 29.08 01/14/2024 8:23 PM ICE PLATFORM SUPERVISOR Plan of Treatment Health Maintenance Due Date [...] 2017 Influenza Vaccine (#1) 2024 12/25/2019 Insurance [facility] [employer] BENEFIT [place] [address] HEALTH [facility] BENEFIT PLAN [place], [place] [facility] Care Teams Dry Goods Inspector Relationship Specialty Start Date End Date Ilene Avelar MD [address] [place] [id number] PCP - General Family Medicine 01/14/24
--- OUTSIDE RECORDS SUMMARY | 2024-10-29 08:23 | XMS_ITS | Encounter Summary ---
Author Organization [facility] Address [address] [facility] [place] [address] Care Team Providers Care Revenue Cycle Consultant Name Role Phone Ilene Koroma MD Primary Care Provider [phone] None, Physician Primary Care Provider Unavailabl e Ilene Koroma MD Unavailable [phone] Reason for Visit * Reason Onset Date Comments Results 10/03/2019 Encounter Details Date Type Department Care Team (Late st Contact Info) Description 10/03/2019 Telephone [facility] [address] [place] [address] Massiel Ambriz Results Social History [...] on filedocumented in this encounter Care Teams Revenue Cycle Consultant Relationship Specialty Start Date End Date Ilene Koroma MD PCP - General Family Medicine 09/29/19 11/26/23 None, Physician PCP - General 11/27/23 Ilene Koroma MD Family Medicine 11/27/23 documented as of this encounter
[2024-10-29 08:24] LABS: Alanine Aminotransferase 68 U/L (6-35); Albumin Level 4.5 g/dL (3.5-5.1); Alkaline Phosphatase 157 U/L (38-126); Anion Gap 8 mmol/L (4-12); Aspartate Amino Transferase 42 U/L (14-36); Bilirubin,Total 0.7 mg/dL (0.2-1.3); Blood Urea Nitrogen 13 mg/dL (7-17); Calcium 9.4 mg/dL (8.4-10.2); Carbon Dioxide 24 mmol/L (22-30); Chloride 106 mmol/L (98-107); Estimated CRCL calculation 119 ml/min; Estimated Glomerular Filt Rate > 60; Glucose 101 mg/dL (65-110); Lipase 82 U/L (23-300); Potassium 4.1 mmol/L (3.4-5.0); Sodium 138 mmol/L (137-145); Total Protein 7.6 g/dL (6.3-8.2)
[2024-10-29] MEDS: ALBUTEROL SULFATE NEB 2.5 MG/3 ML INH 5 MG INHALATION (08:25)
[2024-10-29 08:27] VITALS: PULSE 102; RESP 24
[2024-10-29 08:35] LABS: Troponin I < 0.012 ng/mL (0.000-0.034)
[2024-10-29 09:02] LABS: Acetaminophen < 10 ug/mL (10-30); Salicylate < 1.0 mg/dL (2-20)
[2024-10-29 09:20] LABS: Influenza A QL RT-PCR Negative (Negative); Influenza B QL RT-PCR Negative (Negative); RSV RNA, RT-PCR Negative (Negative); SARS-CoV-2 RNA PCR Negative (Negative)
[2024-10-29 09:59] LABS: Cannabinoid Screen Urine Negative (Negative)
--- NOTE | 2024-10-29 09:59 | PC.NURSE ---
Lab called for add on blood orders
[2024-10-29 10:05] LABS: INR 1.0; Prothrombin Time 12.9 Seconds (11.1-14.7)
[2024-10-29 10:06] LABS: Partial Thromboplastin Time 34.8 Seconds (22.3-36.8)
[2024-10-29 10:37] LABS: Beta HCG Quantitative < 2.39 mIU/ML
== END 2024-10-29 10:53 | disposition home or self-care (01) ==
PROVIDERS: Emergency Provider Emergency Medicine; PCP Family Medicine
DX: R06.02 Shortness of breath (principal); Z32.01 Encounter for pregnancy test, result positive; Z20.822 Contact with and (suspected) exposure to COVID-19; T43.506A Underdosing of unspecified antipsychotics and neuroleptics, initial encounter; Z91.138 Patient's unintentional underdosing of medication regimen for other reason; F31.9 Bipolar disorder, unspecified; F17.200 Nicotine dependence, unspecified, uncomplicated; R94.31 Abnormal electrocardiogram [ECG] [EKG]
CPT/HCPCS: 36415; 80053; 80143; 80179; 80307; 82077; 83690; 84484; 84702; 85025; 85380; 85610; 85730; 87491; 87591; 87637; 93005; 94640; 99284

== ENCOUNTER 2024-11-18 03:17 | Emergency (ER) | payer OTHER, SELFPAY ==
--- NOTE | ~2024-11-18 | XR_ITS ---
Examination: XR chest 1V portable Clinical History: sob Comparison: None Technique: Portable AP Findings: Heart size normal. Lungs clear. No acute bony abnormality. IMPRESSION: 1. No acute cardiopulmonary findings given portable technique. Reviewed, dictated and finalized at location R.
[2024-11-18 03:16] VITALS: BP 114/83; PULSE 115; RESP 16; TEMP 36.7; O2SAT 100
--- NOTE | 2024-11-18 03:21 | ECG_ITS ---
Test Date: 2024-11-18 03:22:52 Measurements Intervals Mclain Rate: 117 P: 64 GA: 144 QRS: 79 QRSD: 93 T: 30 QT: 298 QTc: 416 Interpretive Statements SINUS TACHYCARDIA OTHERWISE NORMAL ECG Compared to ECG 10/29/2024 08:03:36 Sinus rhythm no longer present Electronically Signed On 11-18-2024 08:00:23 CDT by Angel Courtney M.D.
--- NOTE | 2024-11-18 03:21 | ED.SOB ---
HPI - SOB/Dyspnea General Chief Complaint: Shortness of Breath/Dyspnea Stated Complaint: SOB, +ETOH, POSSIBLY DRUGGED, WANTS CHECKED OUT Time Seen by Provider: 11/18/24 03:21 Source: EMS Mode of arrival: EMS History of Present Illness HPI Narrative: Patient presents via EMS. Reports she has been short of breath for 3 weeks, coughing. Reportedly yelling that she can't breathe. Had reported she had been drinking alcohol. Also reported to EMS that she used marijuana and wants checked for drugs becuase she thought it might have had meth in it. No PCP. Feels like her right leg is swollen. She reports a history of asthma requiring Bipap but no intubation. Reports she miscarried a few weeks ago because she drank too much alcohol. Doesn't have her inhaler because people keep stealing it. Frequently yelling out, asking about a nebulizer treatment or I need steroids. Believes she has bronchitis because a friend has bronchitis. No fevers or chills. Cough is dry, non productive. Reports smoking 2 PPD. Having chest pain. States snot is draining. Related Data Home Medications ?Medication ?Instructions ?Recorded ?Confirmed ?Last Taken ?Type vitamins-iron fumarate 65 1 tablet PO DAILY 10/17/21 05/14/22 04/25/22 20:00 History mg iron-folic acid 1 mg tablet divalproex 500 mg tablet,delayed 500 mg PO Q12H 07/04/22 Unknown History release (Depakote) Allergies Allergy/AdvReac Type Severity Reaction Status Date / Time aripiprazole (From Abili) Allergy Muscle Verified 10/29/24 07:51 Spasms PMFSH Past Medical History Medical History Bipolar disorder Cholestasis during Depression Encounter for Nexplanon removal 10/21/2020 Encounter for screening examination for sexually transmitted disease pruritus Vaginal discharge Surgical History Surgical History No pertinent past surgical history Family History Family History Grandparent Pancreatic cancer Social History Social History Smoking status: Current some day smoker Tobacco type: cigarettes and e-cigarettes/vaping Additional smoking assessment comments: 2 PPD Alcohol intake: current Substance use: current Substance use type: marijuana Lack of Transportation: No Lack of Food: Never True Current Housing: I Have Housing Concerned About Future Housing: No Difficulty Paying Gas/Electric Bills: No Difficulty Paying for Meds: No Currently Unemployed: No Education: High School Diploma/GED Difficulty w/ Childcare or Family Care: No Living arrangements: with family Occupation/Education: occupation Gender identity (if verbalized by the patient): Female Sexual Orientation (if Verbalized by the Patient): Straight or Heterosexual Spiritual care concerns: No Exam Narrative: GENERAL: well-nourished HEAD: Normocephalic, atraumatic. EYES: Non injected, non icteric ENT: No epistaxis. Gross auditory acuity intact. NECK: Supple. No meningismus. CHEST: Speaking in full sentences. No respiratory distress. Non labored. Lungs clear throughout without wheezes HEART: Tachycardic rate and rhythm. . ABDOMEN: Soft, nondistended. No rigidity or guarding. Not peritoneal EXTREMITIES: Normal range of motion. No lower extremity edema on exam despite patient believing right is more swollen than left. SKIN: Warm, dry, no rash. NEURO: No focal deficits. Alert and oriented. Answering questions. Following commands. Normal speech without aphasia or dysarthria. PSYCH: Congruent mood and affect. Pressured speech. Talks at loud volume and fast rate. Course Vital Signs Vital signs: Vital Signs Temperature 98.0 F 11/18/24 03:16 Pulse Rate 115 H 11/18/24 03:16 Respiratory Rate 16 11/18/24 03:16 Blood Pressure 114/83 11/18/24 03:16 Pulse Oximetry 100 11/18/24 03:16 Oxygen Delivery Room Air 11/18/24 03:16 Temperature 98.0 F 11/18/24 03:16 Pulse Rate 115 H 11/18/24 03:16 Respiratory Rate 16 11/18/24 03:16 Blood Pressure 114/83 11/18/24 03:16 Pulse Oximetry 100 11/18/24 04:10 Oxygen Delivery Room Air 11/18/24 04:10 MDM - SOB/Dyspnea MDM Narrative Medical decision making narrative: Patient presents after presenting to PD/EMS reporting that she can't breathe. Frequently yelling she has bronchitis, needs steroids and a nebulizer treatment. Told EMS she was drinking alcohol earlier and smoking marijauana that might have been contaminated with meth. In the emergency department she is afebrile with vital signs that show tachycardia. Mild leukocytosis. Ethanol level negative. Patient has transaminitis with AST, ALT, and alkaline phosphatase levels similar to what they were when she was here recently. Urinalysis unremarkable. D-dimer normal. Will not proceed with further workup for pulmonary embolism. No wheezes on exam. Patient reports being an asthmatic and out of albuterol inhaler because it keeps getting stolen. No report of asthma in PMH section of EMR and albuterol not listed in home medication list but will fill a one time prescription (of note, it did request the # days supply which was filled in as 30). Troponin within normal limits. Urine drug screen negative. Serum Bhcg negative. Patient desiring to go. Stable for DC. Patient reports that the physician listed as her primary care physician is not her PCP; I don't have one. Doctor's don't like me. Differential Diagnosis Differential diagnosis: Likely community acquired pneumonia, asthma with exacerbation, pulmonary embolism and other (drug use; bronchitis; acute viral syndrome; psychiatric) Lab Data Attestation: I reviewed the patient's lab results. 11/18/24 03:43 11/18/24 03:43 Labs: Lab Results 11/18/24 11/18/24 Range/Units 03:43 03:57 WBC 11.7 H (4.5-10.0) K/mm3 RBC 4.67 (4.2-5.4) M/mm3 Hgb 13.5 (12.0-15.0) g/dL Hct 40.5 (37.0-47.0) % MCV 86.7 (80-100) fl MCH 28.9 (26-34) pg MCHC 33.3 (32-36) g/dl RDW 12.8 (11.5-14.5) % Plt Count 247 (150-375) k/mm3 MPV 11.2 H (7.4-10.4) fl Immature Gran % (Auto) 0.3 (0-0.5) % Neut % (Auto) 76.0 H (45.5-73.1) % Lymph % (Auto) 16.7 L (18.3-44.2) % Pershing % (Auto) 6.1 (2.6-8.5) % Eos % (Auto) 0.7 (0-4.4) % Baso % (Auto) 0.2 (0.2-1.2) % Lymph # (Auto) 1.96 (0.9-3.2) K/mm3 Pershing # (Auto) 0.7 H (0.1-0.6) K/mm3 Eos # (Auto) 0.1 (0-0.3) K/mm3 Baso # (Auto) 0.0 (0.0-0.1) K/mm3 Abs Immat Gran (auto) 0.04 H (0.00-0.031) K/mm3 Absolute Neuts (auto) 8.9 H (1.3-6.7) K/mm3 Absolute Nucleated RBC 0.000 (0.0-0.012) K/mm3 Nucleated RBC % 0.0 (0.0-0.2) % D-Dimer < 0.27 (<0.48) ug/mL Sodium 137 (137-145) mmol/L Potassium 3.9 (3.4-5.0) mmol/L Chloride 102 (98-107) mmol/L Carbon Dioxide 27 (22-30) mmol/L Anion Gap 8 (4-12) mmol/L BUN 16 (7-17) mg/dL Creatinine 0.64 L (0.7-1.0) mg/dL Estim Creat Clear Calc 101 ml/min Estimated GFR > 60 (59 - ) Glucose 89 (65-110) mg/dL Calcium 9.4 (8.4-10.2) mg/dL Total Bilirubin 0.6 (0.2-1.3) mg/dL AST 42 H (14-36) U/L ALT 75 H (6-35) U/L Alkaline Phosphatase 153 H (38-126) U/L Troponin I < 0.012 (0.000-0.034) ng/mL Total Protein 8.1 (6.3-8.2) g/dL Albumin 4.9 (3.5-5.1) g/dL Beta HCG, Quant < 2.39 mIU/ML Urine Color Yellow (Yellow) Urine Appearance Clear (Clear) Urine pH 7.0 (5.0-9.0) Ur Specific [place] 1.004 (1.001-1.035) Urine Protein Negative (Negative) mg/dL Urine Glucose (UA) Negative (Negative) mg/dL Urine Ketones Negative (Negative) mg/dL Ur Blood (Man) Negative (Negative) Urine Nitrate Negative (Negative) Urine Bilirubin Negative (Negative) Urine Urobilinogen 0.2 (<2.0) mg/dL Leukocyte Esterase Rfl Negative (Negative) RACQUEL/UL Urine Opiates Screen Negative (Negative) Urine Methadone Screen Negative (Negative) Ur Barbiturates Screen Negative (Negative) Ur Phencyclidine Scrn Negative (Negative) Ur Amphetamine Screen Negative (Negative) U Benzodiazepines Scrn Negative (Negative) Urine Cocaine Screen Negative (Negative) U Cannabinoids Screen Negative (Negative) Ethyl Alcohol < 10 (<10) mg/dL Influenza A (RT-PCR) Negative (Negative) Influenza B (RT-PCR) Negative (Negative) RSV (RT-PCR) Negative (Negative) SARS-CoV-2 RNA (RT-PCR) Negative (Negative) Imaging Data Attestation: I personally reviewed and interpreted this imaging study as follows: My impression: No acute intrathoracic process on my independent interpretation chest x-ray ECG Data EKG #1: Attestation: I personally reviewed and interpreted this ECG as follows: ECG completion date: 11/18/24 ECG completion time: 03:22 Interpretation: Sinus tachycardia at a rate of 117 beats per minute. SC interval 144. QRS 93. QT/QTC of 298/416. Good R-wave progression across the precordial leads. No T-wave inversion. Discharge Plan Discharge Clinical Impression: Bronchitis, Encounter for medication refill, Shortness of breath, Leukocytosis, Transaminitis Patient Disposition: Home Condition: Stable Instructions: Antibiotic Form, Acute Bronchitis (ED), Leukocytosis (ED), Shortness of Breath (ED), Transaminitis (ED) Additional Instructions: You are correct in that you appear to have bronchitis. No role for steroids given this is usually viral. You are being provided a refill of your albuterol inhaler although it did not previously appear in your medication list. If you need a local primary care physician, the name of the doctors listed below. Rest and supportive care are the main treatments of bronchitis although the Tessalon perles can help with the cough Patient Language: Lithuanian Prescriptions: New albuterol sulfate 90 mcg/actuation aerosol powdr breath activated 1 inh inhalation Q4-6H PRN (Reason: shortness of breath or wheezing) Qty: 1 0RF benzonatate 100 mg capsule 100 mg PO BID PRN (Reason: cough) Qty: 20 0RF No Action estradiol 0.01 % (0.1 mg/gram) cream 1 g vaginal 3XW Qty: 42.5 1RF divalproex [Depakote] 500 mg tablet,delayed release (DR/EC) 500 mg PO Q12H vit-iron fum-folic ac 65 mg iron- 1 mg tablet 1 tablet PO DAILY citalopram 20 mg tablet 20 mg PO DAILY Qty: 30 3RF hydroxyzine HCl 25 mg tablet 25 mg PO TID PRN (Reason: anxiety) Qty: 90 0RF Slynd 4 mg (28) tablet 1 tablet PO DAILY Qty: 28 3RF metronidazole 500 mg tablet 500 mg PO Q12H Qty: 14 0RF Follow-up/Referrals: Gretchen Cordova DO [Physician, Family Practice] Nika,Ilene Escobar MD [Non-Staff] Stand Alone Forms: Work/School Release IP Time of Disposition: 04:27
[2024-11-18] MEDS: BENZONATATE 100 MG CAPSULE PO (03:44)
[2024-11-18] MEDS: guaiFENesin/CODEINE (*CRX) 200/20 MG 10 ML SYRUP PO (03:48)
[2024-11-18 03:51] LABS: Hematocrit 40.5 % (37.0-47.0); Hemoglobin 13.5 g/dL (12.0-15.0); Immature Granulocyte Percent A 0.3 % (0-0.5); Lymphocytes Absolute Auto 1.96 K/mm3 (0.9-3.2); Mean Corpuscular HGB Conc 33.3 g/dl (32-36); Mean Corpuscular Hemoglobin 28.9 pg (26-34); Mean Corpuscular Volume 86.7 fl (80-100); Nucleated Red Blood Cells Absolute Auto 0.000 K/mm3 (0.0-0.012); Nucleated Red Blood Cells Perc 0.0 % (0.0-0.2); Platelet Count Result 247 k/mm3 (150-375); Red Blood Count 4.67 M/mm3 (4.2-5.4); White Blood Count 11.7 K/mm3 (4.5-10.0)
[2024-11-18 04:02] LABS: Alanine Aminotransferase 75 U/L (6-35); Albumin Level 4.9 g/dL (3.5-5.1); Alkaline Phosphatase 153 U/L (38-126); Anion Gap 8 mmol/L (4-12); Aspartate Amino Transferase 42 U/L (14-36); Bilirubin,Total 0.6 mg/dL (0.2-1.3); Blood Urea Nitrogen 16 mg/dL (7-17); Calcium 9.4 mg/dL (8.4-10.2); Carbon Dioxide 27 mmol/L (22-30); Chloride 102 mmol/L (98-107); Estimated CRCL calculation 101 ml/min; Estimated Glomerular Filt Rate > 60; Glucose 89 mg/dL (65-110); Potassium 3.9 mmol/L (3.4-5.0); Sodium 137 mmol/L (137-145); Total Protein 8.1 g/dL (6.3-8.2)
[2024-11-18 04:03] LABS: Add Urine Microscopic? NO; Appearance Urine Clear (Clear); Glucose Urine UA Negative (Negative); Leukocyte Esterase Ur Negative LEU/UL (Negative); Nitrate Urine Negative (Negative); Specific Grav Ur 1.004 (1.001-1.035)
[2024-11-18 04:10] VITALS: O2SAT 100
[2024-11-18 04:17] LABS: Troponin I < 0.012 ng/mL (0.000-0.034)
[2024-11-18 04:21] LABS: Beta HCG Quantitative < 2.39 mIU/ML
[2024-11-18 04:21] LABS: Cannabinoid Screen Urine Negative (Negative)
[2024-11-18 04:24] LABS: Influenza A QL RT-PCR Negative (Negative); Influenza B QL RT-PCR Negative (Negative); RSV RNA, RT-PCR Negative (Negative); SARS-CoV-2 RNA PCR Negative (Negative)
== END 2024-11-18 04:37 | disposition home or self-care (01) ==
PROVIDERS: Emergency Provider Student in an Organized Health Care Education/Training Program
DX: J40 Bronchitis, not specified as acute or chronic (principal); D72.829 Elevated white blood cell count, unspecified; R74.01 Elevation of levels of liver transaminase levels; Z76.0 Encounter for issue of repeat prescription; Z20.822 Contact with and (suspected) exposure to COVID-19; F31.9 Bipolar disorder, unspecified; F17.210 Nicotine dependence, cigarettes, uncomplicated; F17.290 Nicotine dependence, other tobacco product, uncomplicated; Z79.3 Long term (current) use of hormonal contraceptives; Z79.899 Other long term (current) drug therapy; R00.0 Tachycardia, unspecified
CPT/HCPCS: 36415; 71045; 80053; 80307; 81003; 82077; 84484; 84702; 85025; 85380; 87637; 93005; 99284; A9270

== ENCOUNTER 2024-12-18 09:54 | Emergency (ER) | payer OTHER, SELFPAY ==
--- NOTE | ~2024-12-18 | XR_ITS ---
Examination: XR toe 5th RT min 2V Clinical History: crush injury Comparison: None Technique: 3 views right fifth toe Findings/impression: 1. Nondisplaced transverse fracture fifth toe, right foot, middle phalanx, mid shaft. 2. Ankylosis of middle and distal phalanx. Reviewed, dictated and finalized at location R.
--- NOTE | ~2024-12-18 | XR_ITS ---
Examination: XR chest 2V Clinical History: cough Comparison: 11/18/2024 Technique: PA and Lateral Findings: Cardiomediastinal silhouette normal size and configuration. Lungs clear. No acute bony abnormality. IMPRESSION: 1. No acute cardiopulmonary findings. Reviewed, dictated and finalized at location R.
[2024-12-18 10:07] VITALS: BP 137/90; PULSE 93; RESP 16; TEMP 36.4; O2SAT 98
--- NOTE | 2024-12-18 11:09 | ED_ITS ---
HPI - General Adult General Chief complaint: Extremity Injury, Lower Stated complaint: Cough, Possible Broken Toe Time Seen by Provider: 12/18/24 10:59 History of Present Illness HPI narrative: This is a 24-year-old female with history of polysubstance abuse who presents to the ED for a constellation of complaints. Patient states that she was arrested by police yesterday and apparently had her right pinky toe stomped on. She has been having pain to that since then. She has been able to ambulate but with significant pain. She also reports a cough that has been ongoing for 3 months. She does smoke ?anything I can get my hands on?. She states she last smoked crack yesterday. Denies shortness of breath, chest pain. Related Data Home Medications ?Medication ?Instructions ?Recorded ?Confirmed ?Last Taken ?Type vitamins-iron fumarate 65 1 tablet PO DAILY 0 10/17/21 05/14/22 04/25/22 20:00 History mg iron-folic acid 1 mg tablet divalproex 500 mg tablet,delayed 500 mg PO Q12H Unknown History release (Depakote) Allergies Allergy/AdvReac Type Severity Reaction Status Date / Time aripiprazole (From Abilify) Allergy Muscle Verified 12/18/24 10:10 Spasms Review of Systems Review of Systems: Gen.: Denies fevers or chills Eyes: Denies eye pain or visual change ENT: Denies congestion Respiratory: As per HPI CV: Denies chest pain or palpitations GI: Denies abdominal pain nausea, emesis or diarrhea denies burning, urgency, frequency or hematuria Musculoskeletal: Denies back pain or muscle pain Neuro: Denies numbness, tingling, weakness or focal weakness Skin: Denies rash Except as documented, all other systems reviewed and negative PMF Past Medical History Medical History Vaginal discharge Cholestasis during pruritus Bipolar disorder Encounter for screening examination for sexually transmitted disease Encounter for Nexplanon removal 10/21/2020 Depression Surgical History Surgical History No pertinent past surgical history Family History Family History Grandparent Pancreatic cancer Social History Social History Smoking status: Current some day smoker Tobacco type: cigarettes and e-cigarettes/vaping Additional smoking assessment comments: 2 PPD Alcohol intake: current Substance use: current Substance use type: marijuana Lack of Transportation: No Lack of Food: Never True Current Housing: I Have Housing Concerned About Future Housing: No Difficulty Paying Gas/Electric Bills: No Difficulty Paying for Meds: No Currently Unemployed: No Education: High School Diploma/GED Difficulty w/ Childcare or Family Care: No Living arrangements: with family Occupation/Education: occupation Gender identity (if verbalized by the patient): Female Sexual Orientation (if Verbalized by the Patient): Straight or Heterosexual Spiritual care concerns: No Exam Narrative: APPEARANCE: No acute distress, nontoxic, resting in bed EYES: EOMI HEENT: Normocephalic, atraumatic, OMM RESPIRATORY: No respiratory distress Clear to auscultation bilaterally with no rhonchi wheezing or rales. CARDIOVASCULAR: Regular rate and rhythm without murmurs rubs or gallops. ABDOMINAL: Soft, nontender, nondistended, no rebound or guarding MUSCULOSKELETAl: Ecchymosis over the right 5th toe. Tenderness to palpation. Neurovascularly intact. NEURO: Awake and alert. Following commands, speech normal, no focal deficits SKIN:: Warm, dry. No rashes lesions or abrasions PSYCHIATRIC: Normal affect/mood, Course Vital Signs Vital signs: Vital Signs Temperature 97.6 F 12/18/24 10:07 Pulse Rate 93 12/18/24 10:07 Respiratory Rate 16 12/18/24 10:07 Blood Pressure 137/90 12/18/24 10:07 Pulse Oximetry 98 12/18/24 10:07 Oxygen Delivery Room Air 12/18/24 10:07 Temperature 97.6 F 12/18/24 10:07 Pulse Rate 93 12/18/24 10:07 Respiratory Rate 18 12/18/24 12:04 Blood Pressure 137/90 12/18/24 10:07 Pulse Oximetry 98 12/18/24 10:07 Oxygen Delivery Room Air 12/18/24 10:07 Medical Decision Making MDM Narrative Medical decision making narrative: A 24-year-old female presenting for cough and toe pain. On initial evaluation, patient was in no acute distress afebrile, hemodynamically stable. Heart and lungs clear. There was ecchymosis and tenderness to the right 5th toe. X-ray right 5th toe did reveal a nondisplaced middle phalanx fracture. Chest x- ray showed no acute process. Patient was placed in a postop shoe. Urine appeared consistent with UTI so she was given prophylactic Keflex. She was also given a refill of her albuterol inhaler. She was given a referral to Dr. Saenz, Family Medicine, to establish care. Patient was agreeable to this plan. Given strict return precautions. Differential Diagnosis Differential Diagnosis: Fracture, contusion, pneumonia, bronchitis, asthma exacerbation Medical Records Medical records reviewed: Yes I reviewed the external patient's medical records. Vital Signs Vital Signs: Vital Signs Temperature 97.6 F 12/18/24 10:07 Pulse Rate 93 12/18/24 10:07 Respiratory Rate 16 12/18/24 10:07 Blood Pressure 137/90 12/18/24 10:07 Pulse Oximetry 98 12/18/24 10:07 Oxygen Delivery Room Air 12/18/24 10:07 Temperature 97.6 F 12/18/24 10:07 Pulse Rate 93 12/18/24 10:07 Respiratory Rate 18 12/18/24 12:04 Blood Pressure 137/90 12/18/24 10:07 Pulse Oximetry 98 12/18/24 10:07 Oxygen Delivery Room Air 12/18/24 10:07 Lab Data Lab results reviewed: Yes I reviewed the patient's lab results. Labs: Lab Results 12/18/24 12/18/24 12/18/24 Range/Units 11:17 12:20 13:02 Urine Color Yellow (Yellow) Urine Appearance Turbid H (Clear) Urine pH 7.5 (5.0-9.0) Ur Specific [place] 1.023 (1.001-1.035) Urine Protein Negative (Negative) mg/dL Urine Glucose (UA) Negative (Negative) mg/dL Urine Ketones Negative (Negative) mg/dL Ur Blood (Man) Negative (Negative) Urine Nitrate Negative (Negative) Urine Bilirubin Negative (Negative) Urine Urobilinogen 1.0 (<2.0) mg/dL Leukocyte Esterase Rfl Trace H (Negative) RACQUEL/UL Urine RBC 3-5 H (0-2) /hpf Urine WBC 0-5 (0-3) /hpf Ur Squamous Epith Cells Few (Few) /hpf Urine Bacteria 2+ H /hpf Urine Casts 0-2 POC Urine HCG, Qual Negative (Negative) Influenza A (RT-PCR) Negative (Negative) Influenza B (RT-PCR) Negative (Negative) RSV (RT-PCR) Negative (Negative) SARS-CoV-2 RNA (RT-PCR) Negative (Negative) Imaging Data Attestation: I personally reviewed and interpreted this imaging study as follows: Radiologist's impression: Impressions Chest X-Ray 12/18/24 12:16 IMPRESSION: 1. No acute cardiopulmonary findings. X-ray toe 5th right: Findings/impression: 1. Nondisplaced transverse fracture fifth toe, right foot, middle phalanx, mid shaft. 2. Ankylosis of middle and distal phalanx. Discharge Plan Discharge Clinical Impression: UTI (urinary tract infection) Qualifiers: Urinary tract infection type: urethritis Qualified Code(s): N34.2 - Other urethritis Closed fracture of toe Qualifiers: Encounter type: initial encounter Toe: lesser toe Phalanx: middle Fracture alignment: nondisplaced Laterality: right Qualified Code(s): S92.524A - Nondisplaced fracture of middle phalanx of right lesser toe(s), initial encounter for closed fracture Asthma Qualifiers: Asthma severity: mild Asthma persistence: intermittent Asthma complication type: uncomplicated Qualified Code(s): J45.20 - Mild intermittent asthma, uncomplicated Patient Disposition: Home Condition: Stable Instructions: Antibiotic Form Additional Instructions: Keep postop shoe in place. Follow-up with Dr. Saenz, pcp, for further evaluation and management. Take ibuprofen and Tylenol for pain. Apply ice to the area. Return to the ED for any new or worsening symptoms. Patient Language: Upper Sorbian Prescriptions: New albuterol sulfate [Ventolin HFA] 90 mcg/actuation HFA aerosol inhaler 1 puff inhalation QID PRN (Reason: shortness of breath or wheezing) Qty: 8.5 0RF acetaminophen [Tylenol Extra Strength] 500 mg tablet 1,000 mg PO QID PRN (Reason: fever or pain) Qty: 90 0RF cephalexin 500 mg capsule 500 mg PO Q12H 7 Days Qty: 14 0RF ibuprofen 400 mg tablet 400 mg PO Q6H PRN (Reason: fever or pain) Qty: 90 0RF No Action estradiol 0.01 % (0.1 mg/gram) cream 1 g vaginal 3XW Qty: 42.5 1RF divalproex [Depakote] 500 mg tablet,delayed release (DR/EC) 500 mg PO Q12H vit-iron fum-folic ac 65 mg iron- 1 mg tablet 1 tablet PO DAILY citalopram 20 mg tablet 20 mg PO DAILY Qty: 30 3RF hydroxyzine HCl 25 mg tablet 25 mg PO TID PRN (Reason: anxiety) Qty: 90 0RF albuterol sulfate 90 mcg/actuation aerosol powdr breath activated 1 inh inhalation Q4-6H PRN (Reason: shortness of breath or wheezing) Qty: 1 0RF benzonatate 100 mg capsule 100 mg PO BID PRN (Reason: cough) Qty: 20 0RF Slynd 4 mg (28) tablet 1 tablet PO DAILY Qty: 28 3RF metronidazole 500 mg tablet 500 mg PO Q12H Qty: 14 0RF Follow-up/Referrals: Ralf Saenz MD [Primary Care Provider, Family Practice]
[2024-12-18 11:56] LABS: Influenza A QL RT-PCR Negative (Negative); Influenza B QL RT-PCR Negative (Negative); RSV RNA, RT-PCR Negative (Negative); SARS-CoV-2 RNA PCR Negative (Negative)
[2024-12-18 12:04] VITALS: RESP 18
[2024-12-18] MEDS: KETOROLAC 30 MG/ML VIAL (*BKC) IM (12:23)
[2024-12-18 12:26] LABS: BEDSIDEPREGUCG Negative (Negative)
--- NOTE | 2024-12-18 13:07 | PC.NURSE ---
patient refused vital signs at time of discharge.
[2024-12-18 13:12] LABS: Add Urine Microscopic? YES; Appearance Urine Turbid (Clear); Glucose Urine UA Negative (Negative); Leukocyte Esterase Ur Trace LEU/UL (Negative); Nitrate Urine Negative (Negative); Non Pathogenic Casts 0-2; Specific Grav Ur 1.023 (1.001-1.035)
== END 2024-12-18 13:07 | disposition home or self-care (01) ==
PROVIDERS: Emergency Provider Student in an Organized Health Care Education/Training Program; PCP Emergency Medicine
DX: J45.20 Mild intermittent asthma, uncomplicated (principal); N34.2 Other urethritis; S92.524A Nondisplaced fracture of middle phalanx of right lesser toe(s), initial encounter for closed fracture; Z20.822 Contact with and (suspected) exposure to COVID-19; F19.10 Other psychoactive substance abuse, uncomplicated; F31.9 Bipolar disorder, unspecified; F17.210 Nicotine dependence, cigarettes, uncomplicated; F17.290 Nicotine dependence, other tobacco product, uncomplicated; Z79.3 Long term (current) use of hormonal contraceptives; Z79.899 Other long term (current) drug therapy; W51.XXXA Accidental striking against or bumped into by another person, initial encounter
CPT/HCPCS: 71046; 73660; 81001; 81025; 87637; 96372; 99283; J1885